=== PATIENT | male | born 1955 | race Caucasian/White ===

== ENCOUNTER 2016-12-14 10:27 | Observation (INO) ==
[2016-12-14] MEDS ORDERED: Aspirin 81 MG TAB.CHEW PO ONE (10:31)
--- NOTE | 2016-12-14 10:33 | Emergency Department Note ---
Disposition Clinical Impression: Chest pain Disposition: Admitted As Inpatient Condition: Fair General Adult HPI - General Chief complaint: ED Chest Pain Stated complaint: Chest Pain Time Seen by Provider: 12/14/16 10:31 - Related Data Home Medications Medication Instructions Recorded Confirmed Cholecalciferol (D-3) [Vitamin D] 2,000 unit PO DAILY 08/17/16 12/14/16 Cyanocobalamin (Vitamin B-12) 2,500 mcg PO DAILY 08/17/16 12/14/16 [Vitamin B12] Dabigatran [Pradaxa] 150 mg PO BID 08/17/16 12/14/16 Insulin Glargine,Hum.rec.anlog 52 units SQ QAM 08/17/16 12/14/16 [Lantus Solostar] Levothyroxine [Levothyroxine 137 mcg PO QAM 08/17/16 12/14/16 Sodium] Mv-Mn/FA/Vit K/Lycop/Lut/Coq10 1 cap PO DAILY 08/17/16 12/14/16 [Daily Multivitamin Capsule] Omeprazole 20 mg PO DAILY 08/17/16 12/14/16 Vit C/E/Zn/Coppr/Lutein/Zeaxan 2 cap PO BID 08/17/16 12/14/16 [Preservision Areds 2 Softgel] Insulin ASPART [Novolog Flexpen] 10 unit SQ QPM 12/14/16 12/14/16 MethylPREDNISolone [Medrol] 4 mg PO PER PKG DI 12/14/16 12/14/16 Previous Rx's Medication Instructions Recorded HydrOXYzine Pamoate [Hydroxyzine 25 mg PO TID PRN #30 capsule 12/13/16 Pamoate] Allergies Allergy/AdvReac Type Severity Reaction Status Date / Time azithromycin AdvReac Headache Verified 12/14/16 10:37 [From Zithromax Z-Jp] moxifloxacin [From Avelox] AdvReac Gastrointestinal Verified 12/14/16 10:37 Upset Mjzuppf-Isr-Xvr Reductase AdvReac Muscle Pain Verified 12/14/16 10:37 Inhibitor [Statins] Past Medical History - Past Medical History Medical history: Reports: arthritis, diabetes Surgical history: Reports: pacemaker/AICD, thyroidectomy Psychiatric history: Reports: no psych history - Social History Smoking Status: Never smoker Smokeless Tobacco Status: No Alcohol use: Reports: none Drug use: Reports: none Course Vital Signs Temperature 98.7 F 12/14/16 10:31 Pulse Rate 73 12/14/16 10:31 Respiratory Rate 18 12/14/16 10:31 Blood Pressure 153/90 12/14/16 10:31 O2 Sat by Pulse Oximetry 97 12/14/16 10:31 Temperature 98.3 F 12/15/16 06:46 Pulse Rate 84 12/15/16 06:46 Respiratory Rate 16 12/15/16 06:46 Blood Pressure 111/66 12/15/16 06:46 O2 Sat by Pulse Oximetry 94 12/15/16 06:46 Oxygen Delivery Oxygen Delivery Room Air Medical Decision Making - Lab Data Result diagrams: 12/15/16 03:11 12/15/16 03:11 Lab Results 12/14/16 12/14/16 12/14/16 Range/Units 10:39 10:39 10:39 WBC 7.9 (4.3-11.1) K/mcL RBC 4.98 (4.19-5.50) M/mcL Hgb 13.4 (12.9-16.9) g/dL Hct 42.3 (37.5-50.1) % MCV 84.9 (83.0-100.0) fL MCH 26.9 L (28.0-33.3) pg MCHC 31.7 (31.6-35.5) g/dL RDW 13.3 (11.5-14.5) % Plt Count 201 (140-400) K/mcL MPV 11.3 (9.4-12.4) fL Immature Gran % 0.3 (0-4) % Seg Neutrophils % 70.8 % Lymphocytes % 20.7 % Monocytes % 6.8 % Eosinophils % 1.1 % Basophils % 0.3 % Neutrophils # 5.6 (1.6-8.9) K/mcL Lymphocytes # 1.6 (0.6-4.6) K/mcL Monocytes # 0.5 (0.0-1.3) K/mcL Eosinophils # 0.1 (0.0-0.6) K/mcL Basophils # 0.0 (0.0-0.2) K/mcL Immature Plt Fraction 5.9 (1.1-6.1) % PT 12.8 H (9.4-12.1) Seconds INR 1.2 APTT 49.5 H (26.0-36.0) Seconds Sodium 139 (136-145) mEq/L Potassium 4.3 (3.5-4.5) mEq/L Chloride 102 (98-109) mEq/L Carbon Dioxide 29 (19-29) mEq/L BUN 15 (8-26) mg/dL Creatinine 1.20 (0.72-1.25) mg/dL Est GFR ( Amer) > 60 (> 60) Est GFR (Non-Af Amer) > 60 (> 60) BUN/Creatinine Ratio 13 (6-26) Glucose 218 H (70-99) mg/dL Calculated Osmolality 295 (280-300) Calcium 9.6 (8.6-10.8) mg/dL Troponin I (0-0.03) ng/mL 12/14/16 Range/Units 10:39 WBC (4.3-11.1) K/mcL RBC (4.19-5.50) M/mcL Hgb (12.9-16.9) g/dL Hct (37.5-50.1) % MCV (83.0-100.0) fL MCH (28.0-33.3) pg MCHC (31.6-35.5) g/dL RDW (11.5-14.5) % Plt Count (140-400) K/mcL MPV (9.4-12.4) fL Immature Gran % (0-4) % Seg Neutrophils % % Lymphocytes % % Monocytes % % Eosinophils % % Basophils % % Neutrophils # (1.6-8.9) K/mcL Lymphocytes # (0.6-4.6) K/mcL Monocytes # (0.0-1.3) K/mcL Eosinophils # (0.0-0.6) K/mcL Basophils # (0.0-0.2) K/mcL Immature Plt Fraction (1.1-6.1) % PT (9.4-12.1) Seconds INR APTT (26.0-36.0) Seconds Sodium (136-145) mEq/L Potassium (3.5-4.5) mEq/L Chloride (98-109) mEq/L Carbon Dioxide (19-29) mEq/L BUN (8-26) mg/dL Creatinine (0.72-1.25) mg/dL Est GFR ( Amer) (> 60) Est GFR (Non-Af Amer) (> 60) BUN/Creatinine Ratio (6-26) Glucose (70-99) mg/dL Calculated Osmolality (280-300) Calcium (8.6-10.8) mg/dL Troponin I 0.01 (0-0.03) ng/mL Attestation Statement - Attestation Attestation: I examined this patient and my medical decision-making was reviewed with the COMMUNITY ENGAGEMENT LEADER/PA/Advanced Practice Nurse/Resident Physician. I agree with the documented findings, disposition and treatment plan as described except to the extent set forth below. [id number]-xzhm time provided Patient presents complaining of substernal chest discomfort that started several hours ago. He has a pacemaker but denies having a history of CABG or coronary stents. He has a prescription for nitroglycerin but did not take any. He does not appear in any acute distress on exam.
[2016-12-14 10:49] LABS: Basophils % 0.3 %; Eosinophils # 0.1 K/mcL (0.0-0.6); Eosinophils % 1.1 %; Hematocrit 42.3 % (37.5-50.1); Hemoglobin 13.4 g/dL (12.9-16.9); Immature Granulocytes % 0.3 % (0-4); Immature Platelets 5.9 % (1.1-6.1); Lymphocytes # 1.6 K/mcL (0.6-4.6); Lymphocytes % 20.7 %; Mean Corpuscular HGB Conc 31.7 g/dL (31.6-35.5); Mean Corpuscular Hemoglobin 26.9 pg (28.0-33.3); Mean Corpuscular Volume 84.9 fL (83.0-100.0); Mean Platelet Volume 11.3 fL (9.4-12.4); Monocytes # 0.5 K/mcL (0.0-1.3); Monocytes % 6.8 %; Neutrophils # 5.6 K/mcL (1.6-8.9); Platelet Count 201 K/mcL (140-400); Red Blood Count 4.98 M/mcL (4.19-5.50); Red Cell Distribution Width 13.3 % (11.5-14.5); Segmented Neutrophils % 70.8 %
[2016-12-14] MEDS: Nitroglycerin 0.4 MG TAB.SUBL SL ONE ×2 (10:49→10:58)
[2016-12-14 10:53] LABS: INR 1.2; Prothrombin Time 12.8 Seconds (9.4-12.1)
[2016-12-14 10:56] LABS: Activated Partial Thrombo Time 49.5 Seconds (26.0-36.0)
--- NOTE | 2016-12-14 10:56 | Emergency Department Note ---
Disposition Clinical Impression: Chest pain Qualifiers: Chest pain type: unspecified Qualified Code(s): R07.9 - Chest pain, unspecified Disposition: Admitted As Inpatient Condition: Fair Referrals: NO,PCP [Primary Care Provider] - Forms: ED Satisfaction Letter Time of Disposition: 11:59 Chest Pain HPI - General Chief Complaint: ED Chest Pain Stated Complaint: Chest Pain Time Seen by Provider: 12/14/16 10:31 Source: patient Limitations: no limitations Vital Signs Reviewed: Yes Nursing Notes Reviewed: Yes - History of Present Illness HPI Narrative: 61-year-old male with history of hypertension, diabetes, pacemaker defibrillator , on grid Accent, patient states that he has been having substernal chest pain at rest, started at 6:30 AM this morning. Patient did not take any aspirin or nitroglycerin. States his pain goes into his left neck and left arm. He feels short of breath with light activity. Patient has not had pain like this before. Previous left heart catheter's revealed no coronary artery disease. Pt complaint: chest pain Onset (ago): hour(s) Time: 06:30 Onset: during rest Pain Location: substernal, left chest Severity: mild, moderate Severity scale (1-10): 7 Quality: aching, heaviness Pain Radiation: LUE, neck Improves with: nothing Worsens with: nothing Associated symptoms: Reports: nausea, dyspnea. Denies: vomiting, diaphoresis, sense of impending doom, syncope Treatments prior to arrival chest pain: none - Related Data Home Medications Medication Instructions Recorded Confirmed Cholecalciferol (D-3) [Vitamin D] 2,000 unit PO DAILY 08/17/16 12/14/16 Cyanocobalamin (Vitamin B-12) 2,500 mcg PO DAILY 08/17/16 12/14/16 [Vitamin B12] Dabigatran [Pradaxa] 150 mg PO BID 08/17/16 12/14/16 Insulin Glargine,Hum.rec.anlog 52 units SQ QAM 08/17/16 12/14/16 [Lantus Solostar] Levothyroxine [Levothyroxine 137 mcg PO QAM 08/17/16 12/14/16 Sodium] Mv-Mn/FA/Vit K/Lycop/Lut/Coq10 1 cap PO DAILY 08/17/16 12/14/16 [Daily Multivitamin Capsule] Omeprazole 20 mg PO DAILY 08/17/16 12/14/16 Vit C/E/Zn/Coppr/Lutein/Zeaxan 2 cap PO BID 08/17/16 12/14/16 [Preservision Areds 2 Softgel] Insulin ASPART [Novolog Flexpen] 10 unit SQ QPM 12/14/16 12/14/16 MethylPREDNISolone [Medrol] 4 mg PO PER PKG DI 12/14/16 12/14/16 Previous Rx's Medication Instructions Recorded HydrOXYzine Pamoate [Hydroxyzine 25 mg PO TID PRN #30 capsule 12/13/16 Pamoate] Allergies Allergy/AdvReac Type Severity Reaction Status Date / Time azithromycin AdvReac Headache Verified 12/14/16 10:37 [From Zithromax Z-Jp] moxifloxacin [From Avelox] AdvReac Gastrointestinal Verified 12/14/16 10:37 Upset Vynsdkn-Dvm-Kgf Reductase AdvReac Muscle Pain Verified 12/14/16 10:37 Inhibitor [Statins] All systems ED: reviewed and negative except as stated. Constitutional: Denies: fever Eyes: Denies: eye pain Cardiovascular: Reports: as per HPI, chest pain, dyspnea on exertion. Denies: palpitations Respiratory: Reports: as per HPI, dyspnea. Denies: wheezes Gastrointestinal: Reports: nausea. Denies: abdominal pain, vomiting Genitourinary: Denies: urgency, dysuria Musculoskeletal: Denies: back pain, neck pain Integumentary: Denies: rash Neurological: Denies: headache, weakness Chest Pain PMH - Past Medical History Medical history: Reports: arthritis, diabetes Surgical history: Reports: pacemaker/AICD, thyroidectomy Psychiatric history: Reports: no psych history - Social History Smoking Status: Never smoker Alcohol use: Reports: none Drug use: Reports: none Physical Exam Constitutional: appears uncomfortable, no diaphoresis elevated bp Neck: normal inspection, neck is supple, trachea midline Resp: normal chest inspection, CTA bilaterally, no resp distress CV: RRR, no m/g/r, pacemaker to left chest GI: normal inspection, Soft, NTND, BS present Back: normal inspection, no tenderness to palpation Neuro: A&O3, no gross motor or sensory deficits bilaterally Skin: No rashes, skin warm, dry, intact - General Limitations: no limitations General appearance: alert, in no apparent distress Course Course Narrative: 59-year-old insulin-dependent diabetic with chest pain at rest last 5 hours, no previous left heart catheterization the system, concern for ACS given his symptoms, his EKG shows a left bundle branch block but a ventricularly paced rhythm unchanged from previous EKG that was reviewed back in August, no ST segment or Sgarbossa's criteria we will trial of nitroglycerin, given 325 mg aspirin likely admission, Heart score of 4 - Reevaluation(s) Reevaluation #1: Admitted to medicine CP improved with Nitroglycerin to 3/10, added dilaudid if needed but currently declines pain meds, trop negative, paced rhythm pacer rep called no events or VF/VT admitted to medicine in stable condition. Vital Signs Temperature 98.7 F 12/14/16 10:31 Pulse Rate 73 12/14/16 10:31 Respiratory Rate 18 12/14/16 10:31 Blood Pressure 153/90 12/14/16 10:31 O2 Sat by Pulse Oximetry 97 12/14/16 10:31 Temperature 98.7 F 12/14/16 10:31 Pulse Rate 70 12/14/16 11:10 Respiratory Rate 18 12/14/16 10:38 Blood Pressure 126/76 12/14/16 11:10 O2 Sat by Pulse Oximetry 99 12/14/16 10:38 Oxygen Delivery Oxygen Delivery Room Air Chest Pain - MDM Narrative Medical decision making narrative: 61-year-old male with chest pain at rest, admitted to medicine for chest pain workup Dr Woodard in stable condition. - Differential Diagnosis Likely: atypical chest pain, chest pain - Medical Records Medical records reviewed: Yes I reviewed the patient's medical records. - Lab Data Result diagrams: 12/14/16 10:39 12/14/16 10:39 Lab Results 12/14/16 12/14/16 12/14/16 Range/Units 10:39 10:39 10:39 WBC 7.9 (4.3-11.1) K/mcL RBC 4.98 (4.19-5.50) M/mcL Hgb 13.4 (12.9-16.9) g/dL Hct 42.3 (37.5-50.1) % MCV 84.9 (83.0-100.0) fL MCH 26.9 L (28.0-33.3) pg MCHC 31.7 (31.6-35.5) g/dL RDW 13.3 (11.5-14.5) % Plt Count 201 (140-400) K/mcL MPV 11.3 (9.4-12.4) fL Immature Gran % 0.3 (0-4) % Seg Neutrophils % 70.8 % Lymphocytes % 20.7 % Monocytes % 6.8 % Eosinophils % 1.1 % Basophils % 0.3 % Neutrophils # 5.6 (1.6-8.9) K/mcL Lymphocytes # 1.6 (0.6-4.6) K/mcL Monocytes # 0.5 (0.0-1.3) K/mcL Eosinophils # 0.1 (0.0-0.6) K/mcL Basophils # 0.0 (0.0-0.2) K/mcL Immature Plt Fraction 5.9 (1.1-6.1) % PT 12.8 H (9.4-12.1) Seconds INR 1.2 APTT 49.5 H (26.0-36.0) Seconds Sodium 139 (136-145) mEq/L Potassium 4.3 (3.5-4.5) mEq/L Chloride 102 (98-109) mEq/L Carbon Dioxide 29 (19-29) mEq/L BUN 15 (8-26) mg/dL Creatinine 1.20 (0.72-1.25) mg/dL Est GFR ( Amer) > 60 (> 60) Est GFR (Non-Af Amer) > 60 (> 60) BUN/Creatinine Ratio 13 (6-26) Glucose 218 H (70-99) mg/dL Calculated Osmolality 295 (280-300) Calcium 9.6 (8.6-10.8) mg/dL Troponin I (0-0.03) ng/mL 12/14/16 Range/Units 10:39 WBC (4.3-11.1) K/mcL RBC (4.19-5.50) M/mcL Hgb (12.9-16.9) g/dL Hct (37.5-50.1) % MCV (83.0-100.0) fL MCH (28.0-33.3) pg MCHC (31.6-35.5) g/dL RDW (11.5-14.5) % Plt Count (140-400) K/mcL MPV (9.4-12.4) fL Immature Gran % (0-4) % Seg Neutrophils % % Lymphocytes % % Monocytes % % Eosinophils % % Basophils % % Neutrophils # (1.6-8.9) K/mcL Lymphocytes # (0.6-4.6) K/mcL Monocytes # (0.0-1.3) K/mcL Eosinophils # (0.0-0.6) K/mcL Basophils # (0.0-0.2) K/mcL Immature Plt Fraction (1.1-6.1) % PT (9.4-12.1) Seconds INR APTT (26.0-36.0) Seconds Sodium (136-145) mEq/L Potassium (3.5-4.5) mEq/L Chloride (98-109) mEq/L Carbon Dioxide (19-29) mEq/L BUN (8-26) mg/dL Creatinine (0.72-1.25) mg/dL Est GFR ( Amer) (> 60) Est GFR (Non-Af Amer) (> 60) BUN/Creatinine Ratio (6-26) Glucose (70-99) mg/dL Calculated Osmolality (280-300) Calcium (8.6-10.8) mg/dL Troponin I 0.01 (0-0.03) ng/mL - EKG Data EKG attestation: Yes I reviewed and interpreted this EKG. EKG shows normal: sinus rhythm Rate: normal [place]/QRS: LBBB (75 bpm QRS [address] segment elevations or depressions, left bundle branch block seen on previous EKG in August 2016) Interpretation: nonspecific ST-T wave changes - Core Measures AMI Core Measures Followed: Yes Heart Score - Score History: Moderately Suspicious EKG: Non Specific repolarisation Disturbance Age: 45-65 Risk Factors: Equal/Greater than 3 risk factor or history of atherosclerotic disease Troponin: Less than normal limit HEART Score Total: 5
[2016-12-14 11:00] LABS: BUN/Creatinine Ratio 13 (6-26); Blood Urea Nitrogen 15 mg/dL (8-26); Calcium 9.6 mg/dL (8.6-10.8); Carbon Dioxide 29 mEq/L (19-29); Chloride 102 mEq/L (98-109); Glucose 218 mg/dL (70-99); Osmolality,Calculated 295 (280-300); Potassium 4.3 mEq/L (3.5-4.5); Sodium 139 mEq/L (136-145); eGFR For African Americans > 60 (> 60); eGFR For Non-African Americans > 60 (> 60)
[2016-12-14] MEDS ORDERED: Ondansetron 4 MG/2 ML VIAL IVP ONE (11:11)
[2016-12-14] MEDS ORDERED: *HR* HYDROmorphone (PF) 1 MG/ML SYRINGE IVP ONE (11:11)
[2016-12-14] MEDS ORDERED: *HR* Morphine 2 MG/ML SYRINGE IVP PRN (12:41)
[2016-12-14] MEDS ORDERED: Acetaminophen 325 MG TABLET PO PRN (12:41)
[2016-12-14] MEDS ORDERED: Naloxone 0.4 MG/ML INJ IVP PRN (12:41)
[2016-12-14] MEDS ORDERED: Ondansetron 4 MG/2 ML VIAL IVP PRN (12:41)
[2016-12-14] MEDS ORDERED: Ibuprofen 400 MG TABLET PO PRN (12:41)
[2016-12-14] MEDS ORDERED: methylPREDNISolone 4 MG TABLET PO SCH ×3 (12:45→19:00)
[2016-12-14] MEDS ORDERED: D5% in Water 1,000 ML IVC PRN (12:46)
[2016-12-14] MEDS ORDERED: Dextrose Gel 15 GM PO PRN ×2 (12:46)
[2016-12-14] MEDS ORDERED: *HR* Dextrose 50 % in Water (Syg) 50 ML SYRINGE IVP PRN (12:46)
--- NOTE | 2016-12-14 13:04 | Internal Med History&Physical ---
Date of Encounter: 12/14/16 Time of Encounter: 12:58 Assessment and Plan (1) Chest pain Current visit: Yes Status: Acute Cycle trops Obtain ECHO Cardiology consult if any abnormalities in work uo EKG is unremarkable Patient was started on Coreg in 08/2016, again I do not see this on his med list , and patient does not know why it was stopped Will restart low dose coreg and ASA for now Patient is on Pradaxa as well for Afib, may discontinue ASA if CAD work up is negative Has allergy to Statins Device interrogation is normal Qualifiers: Chest pain type: unspecified Qualified Code(s): R07.9 - Chest pain, unspecified (2) Atrial fibrillation Current visit: Yes Status: Chronic rate is controlled Resume home meds Qualifiers: Atrial fibrillation type: permanent Qualified Code(s): I48.2 - Chronic atrial fibrillation (3) Ventricular tachycardia Current visit: Yes Status: Chronic On ICD Stable (4) Diabetes Current visit: Yes Status: Chronic Uncontrolled A1c 8.9 12/10/16 Start on basal , prandial and correctional insulin FS ACHS ADA diet Qualifiers: Diabetes mellitus type: type 2 Diabetes mellitus complication status: without complication Diabetes mellitus resident assistant cna insulin use: without retirement use Qualified Code(s): E11.9 - Type 2 diabetes mellitus without complications (5) ESAU (obstructive sleep apnea) Current visit: Yes Status: Chronic BiPAP at night (6) Urticaria Current visit: Yes Status: Acute Patient stated skin rash for which he went to ED, I did not see any rash today but he does look slighlty flushed Will continue medrol with taper Internal Medicine - H&P: HPI Chief complaint: Chest pain Admitted From: Home Plans for Post Hospital Care: Home History of present illness: Mr. Pike is a 61 year old male with PMH of DM, HTN, VTach s/p AICD, Afib on Pradaxa, HLD, Obesity He is evaluated at bedside with his spouse He reports being in his [facility] state of health till 6a.m this morning when he developed a 5/10 substernal pressure like pain on his chest. He reports pain started mildy and progressively increased to 5, and radiated to his right neck and jaw. he proceeded to present to ER. He denies associated difficulty breathing, nausea, vomiting , or diaphoresis. He denies dizziness or palpitations, his AICD did not fire any impulses he denies leg swelling, orthopnea or dyspnea Other ROS in unremarkable he was at urgent care yesterday for urticaria and was started on medrol He received NTG which decreased his chest pain from 5 to 1. EKG revealed paced rhythm, CBC, Chem unremarkable, CXR is no acute findings, Initial troponin is 0.01, TSH 5.89, A1C 8.55, ECHO from 08/2016 unremarkable. He had a cath in 2013 that did not show any obstruction. His ICD was interrogated in the ED and there were no abnormal findings Due to his multiple risk factors, he will be placed on observation for Chest pain, to cycle his troponin and will repeat an ECHO to assess wall motion abnormalities Past Med Surg Social Fam HX - Past Medical History Medical history: arthritis, diabetes Psychiatric history: no psych history - Past Surgical History Surgical History: pacemaker/AICD, thyroidectomy - Social History Smoking Status: Never smoker Smokeless Tobacco Status: No Alcohol use: none Drug use: none Internal Medicine - H&P: Meds Cholecalciferol (D-3) [Vitamin D] 2,000 unit PO DAILY 08/17/16 [History] Cyanocobalamin (Vitamin B-12) [Vitamin B12] 2,500 mcg PO DAILY 08/17/16 [History ] Dabigatran [Pradaxa] 150 mg PO BID 08/17/16 [History] Insulin Glargine,Hum.rec.anlog [Lantus Solostar] 52 units SQ QAM 08/17/16 [ History] Levothyroxine [Levothyroxine Sodium] 137 mcg PO QAM 08/17/16 [History] Mv-Mn/FA/Vit K/Lycop/Lut/Coq10 [Daily Multivitamin Capsule] 1 cap PO DAILY 08/17 [History] Omeprazole 20 mg PO DAILY 08/17/16 [History] Vit C/E/Zn/Coppr/Lutein/Zeaxan [Preservision Areds 2 Softgel] 2 cap PO BID 08/17 [History] HydrOXYzine Pamoate [Hydroxyzine Pamoate] 25 mg PO TID PRN #30 capsule 12/13/16 [Rx] Insulin ASPART [Novolog Flexpen] 10 unit SQ QPM 12/14/16 [History] MethylPREDNISolone [Medrol] 4 mg PO PER PKG DI 12/14/16 [History] Allergies azithromycin [From Zithromax Z-Jp] Adverse Reaction (Verified 12/14/16 10:37) Headache moxifloxacin [From Avelox] Adverse Reaction (Verified 12/14/16 10:37) Gastrointestinal Upset Tlqrevg-Opi-Bpb Reductase Inhibitor [Statins] Adverse Reaction (Verified 10:37) Muscle Pain All Systems PM: A 10-system review of systems was performed and is negative for pertinent findings except as documented above in the HPI. - Constitutional Constitutional: no chills, no fever(s), no night sweats - EENT Eyes: no change in vision, no discharge, no pain, no photophobia Ears: no ear discharge, no ear pain, no tinnitus Nose, mouth and throat: no dysphagia, no nasal discharge, no neck pain, no sore throat - Cardiovascular Cardiovascular ROS IM: as per HPI - Respiratory Respiratory: as per HPI - Gastrointestinal Gastrointestinal: no abdominal pain, no diarrhea, no hematemesis, no hematochezia, no melena, no nausea, no vomiting - Musculoskeletal Musculoskeletal ROS IM: no numbness, no tingling - Integumentary Integumentary IM: no rash, no unusual bruising - Neurological Neurological ROS: no confusion, no convulsions, no focal weakness, no numbness, no tingling, no tremor(s) - Hematologic/Lymphatic Hematologic/Lymphatic: no easy bruising - Constitutional Vitals: Temp Pulse Resp BP Pulse Ox 98.7 F 72 14 128/80 97 12/14/16 10:31 12/14/16 12:23 12/14/16 12:23 12/14/16 12:23 12/14/16 12:23 VSS Not in any form of distress, speaks full sentences AAOX3, moves all limbs simultaneously Moist oral mucosa, no cyanosis, sclera is not icteric, conjunctiva is not pale Chest is CTAB, no chest wall tenderness Heart is S1, S2 only, no m/g/r Abdomen: Obese, not tender, no palpably enlarged organs, bowel sounds present in all quadrants Extremities: Well perfused, no edema Internal Med - H&P Results - Labs CBC & Chem 7: 12/14/16 10:39 12/14/16 10:39 Labs: Short CBC 12/14/16 Range/Units 10:39 WBC 7.9 (4.3-11.1) K/mcL Hgb 13.4 (12.9-16.9) g/dL Hct 42.3 (37.5-50.1) % Plt Count 201 (140-400) K/mcL Neutrophils # 5.6 (1.6-8.9) K/mcL BMP 12/14/16 10:39 Sodium 139 Potassium 4.3 Chloride 102 Carbon Dioxide 29 BUN 15 Creatinine 1.20 Glucose 218 H Calcium 9.6 Cardiac Enzymes 12/14/16 Range/Units 10:39 Troponin I 0.01 (0-0.03) ng/mL - Impressions ITS Impressions Chest X-Ray 12/14/16 10:31 IMPRESSION: Pacemaker. No acute pulmonary process. D/ / 12/14/2016 11:11:25 Rosina Bello MD / ryland Interpreting Provider: Rosina Bello MD
[2016-12-14] MEDS: Insulin LISPRO 300 UNITS/3 ML VIAL SQ SCH ×2 (17:19)
[2016-12-14] MEDS ORDERED: Insulin DETEMIR 100 UNIT/ML X5UNITS SQ SCH (21:00)
[2016-12-14] MEDS ORDERED: Insulin LISPRO 300 UNITS/3 ML VIAL SQ SCH (21:00)
[2016-12-14] MEDS: *HR* Dabigatran 150 MG CAPSULE PO SCH (21:35)
[2016-12-15 03:28] LABS: Basophils % 0.1 %; Hematocrit 39.8 % (37.5-50.1); Immature Granulocytes % 0.3 % (0-4); Lymphocytes # 0.8 K/mcL (0.6-4.6); Lymphocytes % 8.8 %; Mean Corpuscular HGB Conc 32.7 g/dL (31.6-35.5); Mean Corpuscular Hemoglobin 27.7 pg (28.0-33.3); Mean Corpuscular Volume 84.7 fL (83.0-100.0); Mean Platelet Volume 11.7 fL (9.4-12.4); Monocytes # 0.1 K/mcL (0.0-1.3); Neutrophils # 8.1 K/mcL (1.6-8.9); Platelet Count 197 K/mcL (140-400); Red Cell Distribution Width 13.2 % (11.5-14.5); Segmented Neutrophils % 89.8 %
[2016-12-15 03:43] LABS: BUN/Creatinine Ratio 16 (6-26); Blood Urea Nitrogen 18 mg/dL (8-26); Calcium 9.6 mg/dL (8.6-10.8); Carbon Dioxide 22 mEq/L (19-29); Chloride 103 mEq/L (98-109); Glucose 274 mg/dL (70-99); Osmolality,Calculated 294 (280-300); Potassium 4.6 mEq/L (3.5-4.5); Sodium 136 mEq/L (136-145); eGFR For African Americans > 60 (> 60); eGFR For Non-African Americans > 60 (> 60)
[2016-12-15] MEDS ORDERED: Cyanocobalamin (B-12) 1,000 MCG TABLET PO SCH (09:00)
[2016-12-15] MEDS ORDERED: Multivit/Ca/Min/Fe/FA 1 TAB TABLET PO SCH (09:00)
[2016-12-15] MEDS ORDERED: methylPREDNISolone 4 MG TABLET PO SCH (09:00)
[2016-12-15] MEDS ORDERED: Cholecalciferol (D-3) 1,000 UNIT TABLET PO SCH (09:00)
[2016-12-15] MEDS ORDERED: Aspirin Enteric Coated 81 MG Tablet PO SCH (09:00)
[2016-12-15] MEDS: Insulin LISPRO 300 UNITS/3 ML VIAL SQ SCH ×4 (09:03→12:42)
[2016-12-15] MEDS: *HR* Dabigatran 150 MG CAPSULE PO SCH (12:40)
--- NOTE | 2016-12-15 14:56 | ECHO - Doppler Report ---
Echocardiogram Name: Gabino Pike Date of Study: 12/15/2016 Date: 1955 Ht: 72.0 in Medical Record#: [id number] Age: 61 Wt: 280.0 lb Gender: Male BSA: 2.46 Order #: [id number] Location: [facility] Room #: [id number] Reading Physician: Alessio Larson DO, FACC, SANDRA, NATHANAEL Drum Attendant: JESSY FullerT, [facility] Ordering Physician: Tyshawn Woodard MD Primary Physician: Matt Martinez MD Indications: Chest pain Impressions: LVEF 60%. Normal LV chamber size and function. Mild concentric left ventricular hypertrophy. Indeterminate diastolic function. Atypical septal motion consistent with paced rhythm. Right ventricular size is not well quantified, but demonstrates normal function. Moderately dilated left atrium. No evidence of pulmonary hypertension. A device lead was visualized in the right atrium and right ventricle. No significant valvular dysfunction. Left Ventricular Wall Motion: Rest Echo Findings All wall segments showed normal motion. Findings: Study Quality * Technically sub-optimal due to poor echocardiographic windows. ECG Findings * Paced rhythm. Left Ventricle * LVEF 60%. * Normal LV chamber size and function. * Mild concentric left ventricular hypertrophy. * Indeterminate diastolic function. * Atypical septal motion consistent with paced rhythm. Right Ventricle * Right ventricular size is not well quantified, but demonstrates normal function. Left Atrium * Moderately dilated left atrium. Right Atrium * Mildly dilated right atrium. Interatrial Septum * Interatrial septum not well evaluated. Aortic Valve * Aortic valve not well visualized. * No aortic stenosis. * No aortic regurgitation. Mitral Valve * Normal mitral valve structure and function. * No mitral regurgitation. * No mitral stenosis. Tricuspid Valve * Normal tricuspid valve structure and function. * Trace tricuspid regurgitation. * No evidence of pulmonary hypertension. Pulmonic Valve * Pulmonic valve not well visualized. Aorta * Normally sized aortic root. Pericardium * The pericardium appears normal. IVC * The IVC is not well evaluated. Pulmonary Artery * Pulmonary artery not well visualized. Device lead * A device lead was visualized in the right atrium and right ventricle. History Diabetes Pacer/ICD Implant 08-17-2016 a Previous Echo was performed. Measurements: BP: 112/ 72 2D Normal Values RVIDd: 3.20 cm <2.7 cm IVSd: 1.20 cm 0.6 - 1.0 cm LVIDd: 5.30 cm 3.7 - 5.6 cm LVPWd: 1.30 cm 0.6 - 1.1 cm LVIDs: 3.30 cm 1.5 - 3.6 cm AO: 3.20 cm < 4.0 cm LA: 4.80 cm 2.0 - 4.0cm %FS: 37.70 cm >25 % LA volume: 51 Mitral Valve Dec Time:254.00 msec Peak E:.88 m/sec Peak A:.35 m/sec E/A Ratio:2.5 Peak E' Lat Malick:12.1 cm/s Peak E' Med Malick:8.09 cm/s E/E' Lat Ratio:7.3 E/E' Med Ratio:10.9 Tricuspid Valve TV Regurg Peak Grad: 19.00mmHg TV Regurg Peak Malick: 2.16m/sec Updated by Alessio Larson DO, THELMA, NATHANAEL FLORES on 12/15/2016 2:50:34 PM electronically signed on 12/15/2016 2:51:51 PM with status of Final Wall Motion [place]: 1=Normal, 2=Hypokinesis, 3=Akinesis, 4=Dyskinesis, 5=Aneurysmal, 6=Hyperkinetic, X=Not Visualized (Blank)=Missing
--- NOTE | 2016-12-15 15:29 | Discharge Summary ---
Date of Encounter: 12/15/16 Time of Encounter: 15:27 - Discharge Diagnosis (1) Chest pain Priority: Primary Status: Acute Qualifiers: Chest pain type: unspecified Qualified Code(s): R07.9 - Chest pain, unspecified (2) Atrial fibrillation Priority: Secondary Status: Chronic Qualifiers: Atrial fibrillation type: permanent Qualified Code(s): I48.2 - Chronic atrial fibrillation (3) Ventricular tachycardia Priority: Secondary Status: Chronic (4) Diabetes Priority: Secondary Status: Chronic Qualifiers: Diabetes mellitus type: type 2 Diabetes mellitus complication status: without complication Diabetes mellitus prison insulin use: 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 Qualified Code(s): E11.9 - Type 2 diabetes mellitus without complications (5) ESAU (obstructive sleep apnea) Priority: Secondary Status: Chronic (6) Urticaria Priority: Secondary Status: Acute - Discharge Medications Home Medications: Cholecalciferol (D-3) [Vitamin D] 2,000 unit PO DAILY 08/17/16 [History] Cyanocobalamin (Vitamin B-12) [Vitamin B12] 2,500 mcg PO DAILY 08/17/16 [History ] Dabigatran [Pradaxa] 150 mg PO BID 08/17/16 [History] Insulin Glargine,Hum.rec.anlog [Lantus Solostar] 52 units SQ QAM 08/17/16 [ History] Levothyroxine [Levothyroxine Sodium] 137 mcg PO QAM 08/17/16 [History] Mv-Mn/FA/Vit K/Lycop/Lut/Coq10 [Daily Multivitamin Capsule] 1 cap PO DAILY 08/17 [History] Omeprazole 20 mg PO DAILY 08/17/16 [History] Vit C/E/Zn/Coppr/Lutein/Zeaxan [Preservision Areds 2 Softgel] 2 cap PO BID 08/17 [History] HydrOXYzine Pamoate [Hydroxyzine Pamoate] 25 mg PO TID PRN #30 capsule 12/13/16 [Rx] Insulin ASPART [Novolog Flexpen] 10 unit SQ QPM 12/14/16 [History] MethylPREDNISolone [Medrol] 4 mg PO PER PKG DI 12/14/16 [History] Allergies/Adverse Reactions: Allergies azithromycin [From Linio Z-Jp] Adverse Reaction (Verified 12/14/16 10:37) Headache moxifloxacin [From Avelox] Adverse Reaction (Verified 12/14/16 10:37) Gastrointestinal Upset Vgrwunr-Nco-Oky Reductase Inhibitor [Statins] Adverse Reaction (Verified 10:37) Muscle Pain Procedures/tests Complete & Pending: Procedures Performed prior 72 hours Category Date Time Status EV echocardiogram Routine Y 12/15/16 Completed Date of admission: 12/14/16 13:21 Primary care physician: Matt Martinez MD Discharging clinician: Tyshawn Woodard Anticipated date of discharge: 12/15/16 - Patient Status Disposition: Home, Self-Care Condition: Good Functional capacity at discharge: independent ambulation Overall status at discharge: patient is progressing back to baseline - Discharge Instructions Follow Up With: Matt Martinez MD [Primary Care Provider] - - Diet and Activity Activity: resume usual activities as tolerated Diet: low fat, low cholesterol, low salt diet Interval History: Mr. Pike is a 61 year old male with PMH of DM, HTN, VTach s/p AICD, Afib on Pradaxa, HLD, Obesity He is evaluated at bedside with his spouse [facility] morning when he developed a 5/10 substernal pressure like pain on his chest. He reports pain started mildy and progressively increased to 5, and radiated to his right neck and jaw. he proceeded to present to ER. He denies associated difficulty breathing, nausea, vomiting , or diaphoresis. He denies dizziness or palpitations, his AICD did not fire any impulses he denies leg swelling, orthopnea or dyspnea Other ROS in unremarkable he was at urgent care yesterday a day prior urticaria and was started on medrol , which he did not take. He did not have any rash at my time of review He received NTG which decreased his chest pain from 5 to 1. EKG revealed paced rhythm, CBC, Chem unremarkable, CXR is no acute findings, Initial troponin is 0.01, TSH 5.89, A1C 8.55, ECHO from 08/2016 unremarkable. He had a cath in 2013 that did not show any obstruction. 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 Pike is a 61 year old male - Time Spent with Patient Total time spent providing and/or coordinating discharge services: Less than 30 minutes - Constitutional Vitals: Temp Pulse Resp BP Pulse Ox 97.7 F 74 16 131/79 94 12/15/16 15:12 12/15/16 15:12 12/15/16 15:12 12/15/16 15:12 12/15/16 15:12 General appearance: Present: A&O X 3, pleasant, no acute distress, obese, answers questions appropriately - Head Head exam: Present: atraumatic, normocephalic - Eye Eye exam: Present: PERRL, conjuntiva pink, sclera anicteric Pupils: Present: PERRL - Neck Neck exam general surgery: Present: supple, trachea midline. Absent: lymphadenopathy - Respiratory Respiratory exam: Present: CTAB. Absent: accessory muscle use, rales, rhonchi, wheezes Additional comments: PCM site clean and dry - Cardiovascular Cardiovascular exam: Present: RRR, +S1, +S2. Absent: diastolic murmur, gallop, rubs, systolic murmur - GI/Abdominal GI/Abdominal exam: Present: normal bowel sounds, soft, no peritoneal signs. Absent: distended, tenderness - Extremities Exam Extremities exam: Present: warm, radial pulses palpable and symetrical. Absent : calf tenderness, cyanotic, pedal edema - Neurological Exam Neurological exam: Present: CN II-XII intact, oriented X3, no focal deficits. Absent: pronater drift, facial droop, speech deficit - Skin Skin exam: Present: dry, intact
--- NOTE | 2016-12-15 17:36 | Electrocardiograph Report ---
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
--- NOTE | 2016-12-15 17:44 | Electrocardiograph Report ---
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
[2016-12-16 11:20] VITALS: BP 131/79
== END 2016-12-15 16:31 | disposition home or self-care (01) ==
LOC: EMEROO 10:27 → 3BNU 10:27 → SUATTDRO 13:21 → 3BNU 15:02
PROVIDERS: ADMIT Internal Medicine; ATTEND Internal Medicine

== ENCOUNTER 2017-02-10 09:10 | Observation (INO) ==
--- NOTE | 2017-02-10 09:30 | Anesthesia Evaluation PreOp ---
Date of Encounter: 02/10/17 Time of Encounter: 09:30 - Past History Planned Operation: Robotic Incisional hernia repair Cardiac History: HTN, Hyperlipidemia, Arrhythmia (Paroxysmal Afib), Pacemaker/ ICD (11/18 AICD - interogated 10/29/2016) Pulmonary History: ESAU Dx (Cpap, O2 2L q hs) TIP STITCHER History: Denies Any Significant HX Other Medical History: Diabetes Type II, Thyroid (Hypothyroid), GERD Anesthesia History: Past Anesthesia (GB, Gastric bypass, duodenal ulcer, AICD, Appy,), Problems (Hard to wake up) Alcohol Use: none Drug use: none Medications and Allergies Cholecalciferol (D-3) [Vitamin D] 2,000 unit PO DAILY 08/17/16 [History] Cyanocobalamin (Vitamin B-12) [Vitamin B12] 2,500 mcg PO DAILY 08/17/16 [History ] Dabigatran [Pradaxa] 150 mg PO BID 08/17/16 [History] Insulin Glargine,Hum.rec.anlog [Lantus Solostar] 52 units SQ QAM 08/17/16 [ History] Levothyroxine [Levothyroxine Sodium] 137 mcg PO QAM 08/17/16 [History] Mv-Mn/FA/Vit K/Lycop/Lut/Coq10 [Daily Multivitamin Capsule] 1 cap PO DAILY 08/17 [History] Omeprazole 20 mg PO DAILY 08/17/16 [History] Vit C/E/Zn/Coppr/Lutein/Zeaxan [Preservision Areds 2 Softgel] 2 cap PO BID 08/17 [History] hydrOXYzine pamoate [Hydroxyzine Pamoate] 25 mg PO TID PRN #30 capsule 12/13/16 [Rx] Insulin ASPART [Novolog Flexpen] 10 unit SQ QPM 12/14/16 [History] methylPREDNISolone [Medrol] 4 mg PO PER PKG DI 12/14/16 [History] Allergies azithromycin [From Zithromax Z-Jp] Adverse Reaction (Verified 12/14/16 10:37) Headache moxifloxacin [From Avelox] Adverse Reaction (Verified 12/14/16 10:37) Gastrointestinal Upset Vjhtqck-Exe-Ftr Reductase Inhibitor [Statins] Adverse Reaction (Verified 10:37) Muscle Pain - Meds/Allergy Pre-op Review Medications Reviewed: Yes Allergies Reviewed: Yes Beta Blockers on Current Med List: No Anesthesia Results - Labs Laboratory Tests 01/26/17 01/26/17 01/26/17 13:45 13:45 13:45 WBC 5.7 Hgb 13.1 Hct 41.4 Plt Count 203 INR 1.3 Sodium 137 Potassium 4.5 Chloride 101 Carbon Dioxide 28 BUN 13 Creatinine 1.21 Echo 08/17/16 EF- 55% Pacred rhythm - Imaging EKG: image reviewed (Ventricular paced) Anesthesia Exam O2 Sat Height 1.83 m Height 1.83 m Weight 127.459 kg Weight 127.459 kg O2 Sat by Pulse Oximetry 98 Vital Signs Temp Pulse Resp BP Pulse Ox 98.1 F 87 18 153/94 98 02/10/17 09:30 02/10/17 09:30 02/10/17 09:30 02/10/17 09:30 02/10/17 09:30 Height: 6' Weight: 281# NPO (# of Hours): > 8 hrs Pain Scale: 0 Pain Scale Used: Numeric (1 - 10) - HEENT Pupil (Motor): Pupils equal, EOMI Mallampati: II Teeth: Missing Denture Type: Upper: Complete, Lower: Partial Oral Opening: Greater than 3 - TIP STITCHER LOC: Oriented TIP STITCHER Motor: Normal RUE, Normal LUE, Normal RLE, Normal LLE, Normal Face TIP STITCHER Sensory: Normal: RUE, LUE, RLE, LLE, Face - Cardiac Rhythm: Regular Murmur: None Carotid Bruit: No - Pulmonary Breath Sounds: bilateral Clear Respiratory Effort: Symmetrical Anesthesia Assess/Plan ASA Score: 3 Modified [place] Scale for Level of Consciousness: Cooperative, oriented, and tranquil Anesthetic Plan: General Autologous Blood: Yes Monitoring Plan: Standard Monitors Recovery Plan: PACU
[2017-02-10] MEDS ORDERED: Lidocaine -MPF 1% 2 ML VIAL ID ONE (09:45)
[2017-02-10] MEDS ORDERED: Ringers Solution, Lactated 1,000 ML IVC SCH ×2 (09:45→11:30)
[2017-02-10] MEDS ORDERED: CeFAZolin Pre 3,000 MG/100 ML 3,000 MG/100 ML BAG IVPB ONE (09:45)
[2017-02-10] MEDS ORDERED: *HR* FentaNYL (PF) 100 MCG/2 ML VIAL ONE (09:52)
[2017-02-10] MEDS ORDERED: *HR* Rocuronium Bromide 50 MG/5 ML VIAL ONE (09:52)
[2017-02-10] MEDS ORDERED: Lidocaine -MPF 4% 5 ML AMPUL ONE (09:52)
[2017-02-10] MEDS ORDERED: *HR* Propofol 200 MG/20 ML VIAL IVP ONE (09:52)
[2017-02-10] MEDS ORDERED: Ondansetron 4 MG/2 ML VIAL ONE (09:52)
[2017-02-10] MEDS ORDERED: Dexamethasone 4 MG/ML VIAL ONE (09:52)
[2017-02-10] MEDS ORDERED: Lidocaine -MPF 2% 2 ML VIAL ONE (09:52)
--- NOTE | 2017-02-10 10:23 | History & Physical Report ---
Date of Encounter: 02/10/17 Time of Encounter: 10:22 24 Hour HP Update - Instructions Instructions: If the History and Physical is less than 30 days old and was completed prior to A.M. admission and or procedure and has NOT been updated on calendar day of procedure please complete this update prior to performing procedure. - Update Patient reports changes in Medical Condition: No Changes in examination, assessment, or condition: No Changes in Medication: No Preop tests/diagnostics Reviewed: Yes Pre-Op MRSA Screen: Negative Surgery Remains Indicated: Yes Consent for Planned Operative Procedure(s) Verified: Yes - Pre-Operative Checklist Preoperative Checklist Indicated: No Prophylactic Antibiotic Ordered: Yes Home Medications Include Beta Warner: No Beta Warner Taken Today (Day of Surgery): No Beta Warner Taken Yesterday (Day Prior to Surgery): No Is VTE Prophylaxis Indicated?: NO
--- NOTE | 2017-02-10 10:24 | Discharge Summary ---
Outpatient Proc Discharge Plan - Plan Additional Instructions: No heavy lifting greater than 15lbs for 6 weeks. May shower in two days. Prescriptions: OxyCODONE/APAP 10/325 [Percocet 10/325 MG] 1 each PO Q6HR PRN #39 tablet PRN Reason: Pain Home Medications: Cholecalciferol (D-3) [Vitamin D] 2,000 unit PO DAILY 08/17/16 [History] Cyanocobalamin (Vitamin B-12) [Vitamin B12] 2,500 mcg PO DAILY 08/17/16 [History ] Dabigatran [Pradaxa] 150 mg PO BID 08/17/16 [History] Insulin Glargine,Hum.rec.anlog [Lantus Solostar] 52 units SQ QAM 08/17/16 [ History] Levothyroxine [Levothyroxine Sodium] 137 mcg PO QAM 08/17/16 [History] Mv-Mn/FA/Vit K/Lycop/Lut/Coq10 [Daily Multivitamin Capsule] 1 cap PO DAILY 08/17 [History] Omeprazole 20 mg PO DAILY 08/17/16 [History] Vit C/E/Zn/Coppr/Lutein/Zeaxan [Preservision Areds 2 Softgel] 2 cap PO BID 08/17 [History] hydrOXYzine pamoate [Hydroxyzine Pamoate] 25 mg PO TID PRN #30 capsule 12/13/16 [Rx] Insulin ASPART [Novolog Flexpen] 10 unit SQ QPM 12/14/16 [History] methylPREDNISolone [Medrol] 4 mg PO PER PKG DI 12/14/16 [History] OxyCODONE/APAP 10/325 [Percocet 10/325 MG] 1 each PO Q6HR PRN #39 tablet [Rx]
[2017-02-10] MEDS ORDERED: *HR* HYDROmorphone (PF) 1 MG/ML SYRINGE IVP PRN (11:28)
[2017-02-10] MEDS ORDERED: *HR* Labetalol 100 MG/20 ML MDV IVP PRN (11:28)
[2017-02-10] MEDS ORDERED: *HR* Promethazine 25 MG/ML VIAL IVP PRN (11:28)
[2017-02-10] MEDS ORDERED: Ondansetron 4 MG/2 ML VIAL IVP ONE (11:28)
[2017-02-10] MEDS ORDERED: Neostigmine Methylsulfate 3 MG/3 ML SYRINGE ONE (11:50)
[2017-02-10] MEDS ORDERED: Ketorolac 30 MG/ML VIAL ONE (12:24)
[2017-02-10] MEDS ORDERED: *HR* OxyCODONE/APAP 10/325 TABLET PO ONE (12:34)
--- NOTE | 2017-02-10 12:34 | Operative Note ---
Date of procedure: 02/10/17 Pre-op diagnosis: Incisional hernia x2 Post-op diagnosis: other Procedure: Robot assisted repair of incisional hernia x 2 Implants: 9cm circular mesh, 12cm circular mesh Anesthesia: ALONSO Surgeon: Varun Guzman Substation Electrician: Lila Mcnulty Condition: stable Disposition: PACU Procedure in Detail: Date of surgery: 02/10/17 After properly identifying the patient, the patient was brought to the operating room and placed in the supine position. After proper IV sedation was achieved followed by general endotracheal intubation, the patient's abdomen was prepped and draped in normal sterile fashion. After timeout was performed noting the patient's name and type of procedure to be performed the patient's abdomen was prepped and draped in a normal sterile fashion. A timeout was performed noting the patient's name and type of procedure to be performed. A 15 blade scalpel was used to make an incision along the mid axillary line between the left costal margin and left superior iliac crest. A 12 mm Visiport was then placed in the incision and dissection was performed through the subcutaneous tissue, external and internal oblique fascia, transversalis abdominous fascia, and peritoneum until the abdomen was entered. A laparoscopic camera was placed through the port which showed no injury to the intra-abdominal organs upon entry. A left upper quadrant and left lower quadrant 8 mm port were then placed under direct camera visualization. The da Atul robot was brought towards the operative field and docked appropriately, however during the attempted docking and difficulty with position of the left lower quadrant port the decision was made to place a new 8 mm port in the left lower quadrant for better intra-abdominal examination. Evaluation showed no evidence of adhesions to the abdominal wall. There was a hernia defect noted near the umbilicus which was approximately 4-5 cm in size. Superior to this at the level of the epigastrium there was an additional small hernia defect. The adipose tissue near the epigastric hernia defect was dissected free with Bovie cauterization and blunt dissection. This revealed a small 1-2 cm hernia defect. The decision was made to go ahead and repair these hernia defects utilizing a 9 cm and 12 cm mesh. First the decision was made to close the larger hernia defect using a 2-0 nonabsorbable V-Lock suture which was placed through the 12 mm port. This was used to approximate the hernia defect in a running fashion. Once this was performed the decision was made to go ahead and complete the surgical procedure by undocking the da Atul robot and bringing onto the operative field a 9 cm circular mesh and 12 cm circular mesh. A 3-0 Vicryl suture was placed in the center of both meshes and both meshes were introduced into the abdomen via the 12 mm port. A fascia grasper was placed in the center of the larger hernia defect between the running suture closure which was used to grasp the 12 cm mesh to approximate it against the abdominal wall. The fascia grasper was then placed through the epidermis through the center of the epigastric hernia defect which was used to grasp the 9cm circular mesh to retract it and approximate it against the abdominal wall. Once this was performed a 5 mm Protak was used to tack the perimeter of the mesh against the abdominal wall. A 5 mm absorbable tack baffle installer was then used to tack the inner perimeter of the mesh against the abdominal wall. The mesh was then briefly irrigated with normal saline solution and the sutures were cut at the level of the skin. The abdomen was desufflated after all ports removed. The abdominal fascia for the 12 mm port was closed with a 0 Vicryl suture. All remaining incisions were closed with 4-0 Monocryl sutures. Needle, sponge, and instrument counts were correct 2 and the incisions were covered with Dermabond. The patient was aroused from IV sedation, extubated in the operating room without complication, and transported to the recovery room stable condition.
[2017-02-10] MEDS ORDERED: *HR* HYDROmorphone 2 MG/ML SYRINGE ONE (12:37)
[2017-02-10] MEDS ORDERED: Acetaminophen IV 1,000 MG/100 ML INFUS..BTL IVPB ONE (14:41)
--- NOTE | 2017-02-10 17:25 | Anesthesia Evaluation Post Op ---
Date of Encounter: 02/10/17 Time of Encounter: 17:21 - Vital Signs Vital Signs: Vital Signs/O2 Sat/Glucose, Most Recent Temp Pulse Resp BP Pulse Ox 97.8 F 69 16 142/81 97 02/10/17 13:30 02/10/17 16:30 02/10/17 16:30 02/10/17 16:30 02/10/17 16:30 Blood Glucose* 161 - Lungs Lungs: Clear Ascult./Percussion - Airway Airway: Non-obstructed - Cardiovascular Regular Rate - Mental Status Mental Status: Alert & Oriented, Answers Appropriately, Baseline Status - Pain Pain Scale: 0 (denies pain, describes he feels general malaise) Pain Scale used: Numeric (1 - 10) - Nausea Vomiting Nausea Vomiting: Not Present - Hydration Hydration: Tolerates oral liquids Notes: 02/10/17 17:22 pt A&O x4, sitting upright at bedside, pt's vitals remain stable, taking in appropriate PO intake, pt states that he feels general malaise, pt able to urinate while standing at bedside, but does not feel well enough to ambulate, will admit overnight per Dr Guzman. - Discharge PostOp Status: Transfer Patient to floor
[2017-02-10] MEDS ORDERED: *HR* OxyCODONE/APAP 10/325 TABLET PO PRN (18:30)
[2017-02-10] MEDS: Ringers Solution, Lactated 1,000 ML IVC SCH (18:51)
[2017-02-11] MEDS: Ringers Solution, Lactated 1,000 ML IVC SCH (03:09)
[2017-02-11] MEDS ORDERED: Famotidine 20 MG TABLET PO PRN (09:45)
[2017-02-11] MEDS ORDERED: D5% in Water 1,000 ML IVC PRN (09:58)
[2017-02-11] MEDS ORDERED: Dextrose Gel 15 GM PO PRN ×2 (09:58)
[2017-02-11] MEDS ORDERED: *HR* Dextrose 50 % in Water (Syg) 50 ML SYRINGE IVP PRN (09:58)
[2017-02-11] MEDS ORDERED: Multivit/Ca/Min/Fe/FA 1 TAB TABLET PO SCH (10:00)
[2017-02-11] MEDS ORDERED: Insulin DETEMIR 100 UNIT/ML X5UNITS SQ SCH (10:00)
[2017-02-11] MEDS ORDERED: Cholecalciferol (D-3) 1,000 UNIT TABLET PO SCH (10:15)
[2017-02-11 10:31] VITALS: BP 100/57
[2017-02-11] MEDS ORDERED: Insulin LISPRO 300 UNITS/3 ML VIAL SQ SCH ×2 (11:30→21:00)
--- NOTE | 2017-02-11 12:30 | Discharge Summary ---
Date of Encounter: 02/11/17 Time of Encounter: 12:29 - Discharge Diagnosis (1) Incisional hernia Priority: Primary Status: Acute Qualifiers: Obstruction and gangrene presence: without obstruction or gangrene Qualified Code(s): K43.2 - Incisional hernia without obstruction or gangrene (2) Shortness of breath Priority: Primary Status: Acute - Discharge Medications Home Medications: Cholecalciferol (D-3) [Vitamin D] 2,000 unit PO DAILY 08/17/16 [History] Cyanocobalamin (Vitamin B-12) [Vitamin B12] 2,500 mcg PO DAILY 08/17/16 [History ] Dabigatran [Pradaxa] 150 mg PO BID 08/17/16 [History] Insulin Glargine,Hum.rec.anlog [Lantus Solostar] 50 units SQ QAM 08/17/16 [ History] Levothyroxine [Levothyroxine Sodium] 137 mcg PO QAM 08/17/16 [History] Mv-Mn/FA/Vit K/Lycop/Lut/Coq10 [Daily Multivitamin Capsule] 1 cap PO DAILY 08/17 [History] Omeprazole 20 mg PO DAILY 08/17/16 [History] Vit C/E/Zn/Coppr/Lutein/Zeaxan [Preservision Areds 2 Softgel] 2 cap PO BID 08/17 [History] Insulin ASPART [Novolog Flexpen] 8 unit SQ QPM 12/14/16 [History] OxyCODONE/APAP 10/325 [Percocet 10/325 MG] 1 each PO Q6HR PRN #39 tablet [Rx] Ranitidine HCl [Acid Signal Wirer] 150 mg PO HS PRN 02/10/17 [History] Allergies/Adverse Reactions: Allergies azithromycin [From Zithromax Z-Jp] Adverse Reaction (Verified 12/14/16 10:37) Headache moxifloxacin [From Avelox] Adverse Reaction (Verified 12/14/16 10:37) Gastrointestinal Upset Ucnqofv-Huf-Qhy Reductase Inhibitor [Statins] Adverse Reaction (Verified 10:37) Muscle Pain General Surgery Exam Initial Vital Signs Temp Pulse Resp BP Pulse Ox 98.1 F 87 18 153/94 98 02/10/17 09:30 02/10/17 09:30 02/10/17 09:30 02/10/17 09:30 02/10/17 09:30 Date of admission: 02/10/17 17:55 Primary care physician: Matt Martinez MD Discharging clinician: Varun Guzman Anticipated date of discharge: 02/11/17 - Patient Status Disposition: Home, Self-Care Condition: Good Overall status at discharge: patient is progressing back to baseline - Discharge Instructions Follow Up With: Matt Martinez MD [Primary Care Provider] - Anna Ryan CNP [Advanced Practice Nurse] - 02/26/17 11:15 am Additional Instructions: No heavy lifting greater than 15lbs for 6 weeks. May shower in two days. - Hospital Course Hospital course: Mr. Pike is a 61 year old male who underwent a rogbot assisted incisional hernia repair on 02/11/17 was noted to have symptoms of shortness of breath and dizziness following the procedure. He was kept overnight and noted to recover without incident. He tolerated PO diet and was discharged home after lunch with instructions to follow up in two weeks. Time spent discussing smoking cessation with patient: 3 to 10 minutes - Time Spent with Patient Total time spent providing and/or coordinating discharge services: Less than 30 minutes Labs on day of discharge: Labs from last 24 hours 02/11/17 02/11/17 02/11/17 11:27 09:07 00:50 POC Glucose 173 H 177 H 201 H 02/10/17 02/10/17 02/10/17 20:30 14:22 13:04 POC Glucose 234 H 238 H 161 H 02/10/17 09:28 POC Glucose 116 H
--- NOTE | 2017-02-11 15:21 | Electrocardiograph Report ---
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
[2017-02-12] MEDS ORDERED: Cyanocobalamin (B-12) 1,000 MCG TABLET PO SCH (09:00)
== END 2017-02-11 15:30 | disposition home or self-care (01) ==
LOC: SAMDAY 09:10 → 3ANU 09:10
PROVIDERS: ADMIT Surgery; ATTEND Surgery

== ENCOUNTER 2017-10-25 20:31 | Observation (INO) ==
--- NOTE | 2017-10-25 21:38 | Emergency Department Note ---
Disposition Clinical Impression: Chest pain Qualifiers: Chest pain type: unspecified Qualified Code(s): R07.9 - Chest pain, unspecified Disposition: Admitted As Inpatient Condition: Fair Referrals: Matt Martinez MD [Primary Care Provider] - Forms: ED Satisfaction Letter Time of Disposition: 22:18 Chest Pain HPI - General Chief Complaint: ED Chest Pain Stated Complaint: chest pain,sob Time Seen by Provider: 10/25/17 21:17 Source: patient, family Mode of arrival: ambulatory Limitations: no limitations Vital Signs Reviewed: Yes Nursing Notes Reviewed: Yes - History of Present Illness HPI Narrative: 62-year-old who comes in complaining of intermittent chest pain and dyspnea. She was seen here yesterday and told it was the antibiotics that he was on. Severity scale (1-10): 6 Quality: tightness, aching Pain Radiation: none Improves with: nothing Worsens with: exertion Treatments prior to arrival chest pain: none - Related Data Home Medications Medication Instructions Recorded Confirmed Cholecalciferol (D-3) [Vitamin D] 2,000 unit PO DAILY 08/17/16 10/14/17 Cyanocobalamin (Vitamin B-12) 2,500 mcg PO DAILY 08/17/16 10/14/17 [Vitamin B12] Dabigatran [Pradaxa] 150 mg PO BID 08/17/16 10/14/17 Insulin Glargine,Hum.rec.anlog 52 units SQ QAM 08/17/16 10/14/17 [Lantus Solostar] Levothyroxine [Levothyroxine 137 mcg PO Q48H 08/17/16 10/14/17 Sodium] Mv-Mn/FA/Vit K/Lycop/Lut/Coq10 1 cap PO DAILY 08/17/16 10/14/17 [Daily Multivitamin Capsule] Omeprazole 20 mg PO DAILY 08/17/16 10/14/17 Vit C/E/Zn/Coppr/Lutein/Zeaxan 2 cap PO BID 08/17/16 10/14/17 [Preservision Areds 2 Softgel] Insulin ASPART [Novolog Flexpen] 16 unit SQ BID 12/14/16 10/14/17 Finasteride [Proscar] 5 mg PO DAILY 10/14/17 10/14/17 Levothyroxine Sodium [Levo-T] 150 mcg PO Q48H 10/14/17 10/14/17 Previous Rx's Medication Instructions Recorded HYDROcodone/Acet 7.5/325 mg [[place] 1 tab PO Q6H PRN 3 Days #12 tablet 10/14/17 7.5-325 mg] Allergies Allergy/AdvReac Type Severity Reaction Status Date / Time azithromycin AdvReac Headache Verified 10/14/17 12:34 [From Zithromax Z-Jp] moxifloxacin [From Avelox] AdvReac Gastrointestinal Verified 10/14/17 12:34 Upset Iiiubsc-Tpl-Rbn Reductase AdvReac Muscle Pain Verified 10/14/17 12:34 Inhibitor [Statins] All systems ED: reviewed and negative except as stated. Constitutional: Denies: fever, chills, weakness, weight change Eyes: Denies: eye pain, eye discharge, vision change ENT ED: Denies: ear pain, throat pain, dental pain, hearing loss, epistaxis, congestion, dysphagia Cardiovascular: Reports: chest pain. Denies: palpitations, dyspnea on exertion , edema, syncope Respiratory: Reports: dyspnea. Denies: cough, wheezes, hemoptysis, stridor Gastrointestinal: Denies: abdominal pain, nausea, vomiting, diarrhea, constipation, hematemesis, melena, hematochezia Genitourinary: Denies: urgency, dysuria, frequency, hematuria Musculoskeletal: Denies: back pain, neck pain, arthralgia, myalgia Integumentary: Denies: rash, abrasion, lesions Neurological: Denies: headache, weakness, numbness, paresthesias, confusion, abnormal gait, vertigo Psychiatric: Denies: anxiety, depression, suicidal thoughts, homicidal thoughts , auditory hallucinations, visual hallucinations Endocrine: Denies: fatigue Hematological/Lymphatic: Denies: easy bleeding, easy bruising Allergic/Immunologic: Denies: facial swelling, urticaria Chest Pain PMH - Past Medical History Medical history: Reports: arthritis, atrial fibrillation, GERD, hyperlipidemia, hypertension, other Surgical history: Reports: appendectomy, cholecystectomy, pacemaker/AICD, thyroidectomy, other Psychiatric history: Reports: no psych history - Social History Smoking Status: Former smoker Alcohol use: Reports: none Drug use: Reports: none Physical Exam - General Limitations: no limitations General appearance: alert, in no apparent distress - Head Head exam: atraumatic, normocephalic, normal inspection - Eye Eye exam: Present: normal appearance, PERRL, EOMI - ENT ENT exam: normal exam - Neck Neck exam: Present: normal inspection, full ROM, trachea midline - Chest Chest inspection: Present: normal inspection, symmetric chest wall rise - Respiratory Respiratory exam: Present: normal lung sounds bilaterally - Cardiovascular Cardiovascular exam: Present: regular rate, normal rhythm, normal heart sounds - Abdominal Exam Abdominal exam: Present: soft, Non-Tender. Absent: tenderness, distention, guarding, rebound, rigidity - Extremities Exam Extremities exam: Present: normal inspection, full ROM. Absent: tenderness, pedal edema - Expanded Lower Extremity Exam Neurovascular/Tendon exam: Absent: motor deficit, sensory deficit, tendon deficit Gait: observed and normal - Back Exam Back exam: Present: normal inspection, full ROM. Absent: tenderness - Neurological Exam Neurological exam: Present: alert, oriented X3 - Psychiatric Psychiatric exam: Present: normal affect, normal mood - Skin Skin exam: Present: warm, dry, intact, normal color Course - Reevaluation(s) Reevaluation #1: 62-year-old with chest pain and dyspnea. Workup here is negative. We'll go ahead and admit Time: 22:16 - Consultations Consultation #1: discussed with Dr. Webb, admit Time: 22:17 Vital Signs Temperature 98.3 F 10/25/17 20:45 Pulse Rate 77 10/25/17 20:45 Respiratory Rate 16 10/25/17 20:45 Blood Pressure 157/92 10/25/17 20:45 O2 Sat by Pulse Oximetry 98 10/25/17 20:45 Temperature 98.3 F 10/25/17 20:45 Pulse Rate 77 10/25/17 20:45 Respiratory Rate 16 10/25/17 20:45 Blood Pressure 157/92 10/25/17 20:45 O2 Sat by Pulse Oximetry 98 10/25/17 20:45 Oxygen Delivery Oxygen Delivery Room Air Chest Pain - Lab Data Lab results reviewed: Yes I reviewed the patient's lab results. Result diagrams: 10/25/17 21:29 10/25/17 21:29 Lab Results 10/25/17 10/25/17 10/25/17 Range/Units 21:29 21:29 21:29 WBC 7.8 (4.3-11.1) K/mcL RBC 5.03 (4.19-5.50) M/mcL Hgb 13.1 (12.9-16.9) g/dL Hct 42.3 (37.5-50.1) % MCV 84.1 (83.0-100.0) fL MCH 26.0 L (28.0-33.3) pg MCHC 31.0 L (31.6-35.5) g/dL RDW 13.5 (11.5-14.5) % Plt Count 236 (140-400) K/mcL MPV 10.8 (9.4-12.4) fL Immature Gran % 0.3 (0-4) % Seg Neutrophils % 65.3 % Lymphocytes % 26.1 % Monocytes % 6.7 % Eosinophils % 1.3 % Basophils % 0.3 % Neutrophils # 5.1 (1.6-8.9) K/mcL Lymphocytes # 2.0 (0.6-4.6) K/mcL Monocytes # 0.5 (0.0-1.3) K/mcL Eosinophils # 0.1 (0.0-0.6) K/mcL Basophils # 0.0 (0.0-0.2) K/mcL PT 12.2 H (9.4-12.1) Seconds INR 1.1 APTT 44.8 H (26.0-36.0) Seconds Sodium 135 L (136-145) mEq/L Potassium 4.3 (3.5-5.1) mEq/L Chloride 102 (98-107) mEq/L Carbon Dioxide 28 (23-29) mEq/L BUN 12 (8-23) mg/dL Creatinine 0.95 (0.70-1.30) mg/dL Est GFR ( Amer) > 60 (> 60) Est GFR (Non-Af Amer) > 60 (> 60) BUN/Creatinine Ratio 13 (6-26) Glucose 183 H (70-105) mg/dL Calculated Osmolality 284 (280-300) Calcium 10.0 (8.6-10.3) mg/dL Troponin I (< 0.04) ng/mL 10/25/17 Range/Units 21:29 WBC (4.3-11.1) K/mcL RBC (4.19-5.50) M/mcL Hgb (12.9-16.9) g/dL Hct (37.5-50.1) % MCV (83.0-100.0) fL MCH (28.0-33.3) pg MCHC (31.6-35.5) g/dL RDW (11.5-14.5) % Plt Count (140-400) K/mcL MPV (9.4-12.4) fL Immature Gran % (0-4) % Seg Neutrophils % % Lymphocytes % % Monocytes % % Eosinophils % % Basophils % % Neutrophils # (1.6-8.9) K/mcL Lymphocytes # (0.6-4.6) K/mcL Monocytes # (0.0-1.3) K/mcL Eosinophils # (0.0-0.6) K/mcL Basophils # (0.0-0.2) K/mcL PT (9.4-12.1) Seconds INR APTT (26.0-36.0) Seconds Sodium (136-145) mEq/L Potassium (3.5-5.1) mEq/L Chloride (98-107) mEq/L Carbon Dioxide (23-29) mEq/L BUN (8-23) mg/dL Creatinine (0.70-1.30) mg/dL Est GFR ( Amer) (> 60) Est GFR (Non-Af Amer) (> 60) BUN/Creatinine Ratio (6-26) Glucose (70-105) mg/dL Calculated Osmolality (280-300) Calcium (8.6-10.3) mg/dL Troponin I < 0.03 (< 0.04) ng/mL - Radiology Data Radiology results reviewed: Yes I reviewed the patient's radiology results. Chest X-Ray 10/25/17 20:47 IMPRESSION: Stable chest x-ray. No acute disease. D/ / Toby Ochoa MD / Toby Ochoa MD Interpreting Provider: Toby Ochoa MD - EKG Data EKG attestation: Yes I reviewed and interpreted this EKG. EKG shows normal: sinus rhythm Rate: normal Rhythm: NSR [place]/QRS: LBBB Interpretation: no acute changes Heart Score - Score History: Moderately Suspicious EKG: Non Specific repolarisation Disturbance Age: 45-65 Risk Factors: Equal/Greater than 3 risk factor or history of atherosclerotic disease Troponin: Less than normal limit HEART Score Total: 5
[2017-10-25 21:40] LABS: Basophils % 0.3 %; Eosinophils # 0.1 K/mcL (0.0-0.6); Eosinophils % 1.3 %; Hematocrit 42.3 % (37.5-50.1); Hemoglobin 13.1 g/dL (12.9-16.9); Immature Granulocytes % 0.3 % (0-4); Lymphocytes % 26.1 %; Mean Corpuscular Volume 84.1 fL (83.0-100.0); Mean Platelet Volume 10.8 fL (9.4-12.4); Monocytes # 0.5 K/mcL (0.0-1.3); Monocytes % 6.7 %; Neutrophils # 5.1 K/mcL (1.6-8.9); Platelet Count 236 K/mcL (140-400); Red Blood Count 5.03 M/mcL (4.19-5.50); Red Cell Distribution Width 13.5 % (11.5-14.5); Segmented Neutrophils % 65.3 %
[2017-10-25 21:44] LABS: INR 1.1; Prothrombin Time 12.2 Seconds (9.4-12.1)
[2017-10-25 21:47] LABS: Activated Partial Thrombo Time 44.8 Seconds (26.0-36.0)
[2017-10-25 21:58] LABS: BUN/Creatinine Ratio 13 (6-26); Blood Urea Nitrogen 12 mg/dL (8-23); Carbon Dioxide 28 mEq/L (23-29); Chloride 102 mEq/L (98-107); Glucose 183 mg/dL (70-105); Osmolality,Calculated 284 (280-300); Potassium 4.3 mEq/L (3.5-5.1); Sodium 135 mEq/L (136-145); eGFR For African Americans > 60 (> 60); eGFR For Non-African Americans > 60 (> 60)
[2017-10-25] MEDS ORDERED: Aspirin 81 MG TAB.CHEW ONE (23:24)
[2017-10-26] MEDS ORDERED: Naloxone 0.4 MG/ML INJ IVP PRN (02:37)
--- NOTE | 2017-10-26 02:43 | Internal Med History&Physical ---
Date of Encounter: 10/26/17 Time of Encounter: 02:43 Assessment and Plan (1) Chest pain Current visit: Yes Status: Acute Patient is presented with chest pain. Likely is from the adverse effect of the medication which she received. We will do chest pain rule out protocol. If that protocol turns out to be negative for chest pain workup then consider workup for the drug related adverse reaction. Qualifiers: Chest pain type: unspecified Qualified Code(s): R07.9 - Chest pain, unspecified (2) Adverse effects of medication Current visit: No Status: Acute Patient likely has some adverse effect of the medication. If the troponins are negative then this should be the main diagnosis and need further workup in that area Qualifiers: Encounter type: subsequent encounter Qualified Code(s): T88.7XXD - Unspecified adverse effect of drug or medicament, subsequent encounter (3) CAD (coronary artery disease) Current visit: No Status: Chronic Patient is known to have a coronary artery disease. We will follow the chest pain rule out protocol. Qualifiers: Coronary Disease-Associated Artery/Lesion type: [place] artery [place] vs. transplanted heart: [place] heart Associated angina: without angina Qualified Code(s): I25.10 - Atherosclerotic heart disease of [place] coronary artery without angina pectoris (4) Atrial fibrillation Current visit: No Status: Chronic Patient is known to have atrial fibrillation. Rate control: Metoprolol Anticoagulation:Pradaxa Qualifiers: Atrial fibrillation type: permanent Qualified Code(s): I48.2 - Chronic atrial fibrillation (5) Diabetes Current visit: No Status: Chronic Patient is known to have diabetes. Patient is presently on home dose of insulin. We will continue the home dose. We will follow the recommendations from subcutaneous insulin order set. 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 Internal Medicine - H&P: HPI Chief complaint: Chest pain Admitted From: Emergency Dept Plans for Post Hospital Care: Home History of present illness: PCP: Dr. Martinez Brief past medical history: Patient has atrial fibrillation, GERD, hypertension , dyslipidemia, pacemaker/AICD History of present medical illness: 62-year-old gentleman who has a background history of above-mentioned conditions was evaluated by PCP and was started on antibiotics for possible chest cold. Patient was complaining of persistent shortness of breath/chest pressure and discomfort. Patient was yesterday evaluated in the emergency room and was told that one of the antibiotics is responsible for his symptoms. Patient went home yesterday but came back today again with the same symptoms. Patient was complaining of chest pain which is retrosternal, localized, nonirradiated and associated with movement and relieved by rest. In view of the persistent symptoms patient came to emergency room for further evaluation. Workup in the emergency room: Patient was evaluated in the emergency room. In view of the persistent symptoms and new onset of chest pain was decided to admit the patient. Reason for admission: Chest pain to rule out ACS Past Med Surg Social Fam HX - Past Medical History Medical history: arthritis, atrial fibrillation, GERD, hyperlipidemia, other Psychiatric history: no psych history - Past Surgical History Surgical History: appendectomy, cholecystectomy, pacemaker/AICD, thyroidectomy, other - Social History Smoking Status: Former smoker Smokeless Tobacco Status: No Alcohol use: none Drug use: none - Family History Mother Living Status: Hx Family Cancer: Yes Father Living Status: Hx Family Cardiac Disorders: Yes Internal Medicine - H&P: Meds Cholecalciferol (D-3) [Vitamin D] 2,000 unit PO DAILY 08/17/16 [History] Cyanocobalamin (Vitamin B-12) [Vitamin B12] 2,500 mcg PO DAILY 08/17/16 [History ] Dabigatran [Pradaxa] 150 mg PO BID 08/17/16 [History] Insulin Glargine,Hum.rec.anlog [Lantus Solostar] 50 units SQ QAM 08/17/16 [ History] Levothyroxine [Levothyroxine Sodium] 137 mcg PO DAILY 08/17/16 [History] Mv-Mn/FA/Vit K/Lycop/Lut/Coq10 [Daily Multivitamin Capsule] 1 cap PO DAILY 08/17 [History] Omeprazole 20 mg PO DAILY 08/17/16 [History] Vit C/E/Zn/Coppr/Lutein/Zeaxan [Preservision Areds 2 Softgel] 2 cap PO BID 08/17 [History] Insulin ASPART [Novolog Flexpen] 16 unit SQ BID 12/14/16 [History] Levothyroxine Sodium [Levo-T] 150 mcg PO Q72H 10/14/17 [History] 3 Allergy/AdvReac Type Severity Reaction Status Date / Time azithromycin AdvReac Headache Verified 10/14/17 12:34 [From Zithromax Z-Jp] moxifloxacin [From Avelox] AdvReac Gastrointestinal Verified 10/14/17 12:34 Upset Jemivcg-Ijq-Ucb Reductase AdvReac Muscle Pain Verified 10/14/17 12:34 Inhibitor [Statins] All Systems PM: A 10-system review of systems was performed and is negative for pertinent findings except as documented above in the HPI. - Constitutional Constitutional: no chills, no fever(s), no night sweats - EENT Eyes: no change in vision, no discharge, no pain, no photophobia Ears: no ear discharge, no ear pain, no tinnitus Nose, mouth and throat: no dysphagia, no nasal discharge, no neck pain, no sore throat - Cardiovascular Cardiovascular ROS IM: chest pain, diaphoresis, palpitations, no dyspnea, no lightheadedness, no syncope - Respiratory Respiratory: no cough, no dyspnea, no wheezing, no excessive phlegm production - Gastrointestinal Gastrointestinal: no abdominal pain, no diarrhea, no hematemesis, no hematochezia, no melena, no nausea, no vomiting - Musculoskeletal Musculoskeletal ROS IM: no numbness, no tingling - Integumentary Integumentary IM: no rash, no unusual bruising - Neurological Neurological ROS: no confusion, no convulsions, no focal weakness, no numbness, no tingling, no tremor(s) - Hematologic/Lymphatic Hematologic/Lymphatic: no easy bruising - Constitutional Vitals: Temp Pulse Resp BP Pulse Ox 97.6 F 69 16 134/80 99 10/26/17 00:07 10/26/17 00:07 10/26/17 00:07 10/26/17 00:07 10/26/17 00:07 General appearance: Present: A&O X 3, pleasant, no acute distress, answers questions appropriately - Head Head exam: Present: atraumatic, normocephalic - Eye Eye exam: Present: PERRL, conjuntiva pink, sclera anicteric Pupils: Present: PERRL - Neck Neck exam general surgery: Present: supple, trachea midline. Absent: lymphadenopathy - Respiratory Respiratory exam: Present: CTAB. Absent: accessory muscle use, rales, rhonchi, wheezes - Cardiovascular Cardiovascular exam: Present: RRR, +S1, +S2. Absent: diastolic murmur, gallop, rubs, systolic murmur - GI/Abdominal GI/Abdominal exam: Present: normal bowel sounds, soft, no peritoneal signs. Absent: distended, tenderness - Extremities Exam Extremities exam: Present: warm, radial pulses palpable and symmetrical. Absent : calf tenderness, cyanotic, pedal edema - Neurological Exam Neurological exam: Present: CN II-XII intact, oriented X3, no focal deficits. Absent: pronater drift, facial droop, speech deficit - Skin Skin exam: Present: dry, intact Internal Med - H&P Results - Labs CBC & Chem 7: 10/25/17 21:29 10/25/17 21:29
[2017-10-26] MEDS ORDERED: *HR* Dextrose 50 % in Water (Syg) 50 ML SYRINGE IVP PRN (04:19)
[2017-10-26] MEDS ORDERED: D5% in Water 1,000 ML IVC PRN (04:19)
[2017-10-26] MEDS ORDERED: Dextrose Gel 15 GM/37.5 ML TUBE PO PRN ×2 (04:19)
[2017-10-26 04:52] LABS: Basophils % 0.3 %; Eosinophils # 0.2 K/mcL (0.0-0.6); Eosinophils % 2.4 %; Hematocrit 38.7 % (37.5-50.1); Hemoglobin 12.1 g/dL (12.9-16.9); Immature Granulocytes % 0.2 % (0-4); Lymphocytes % 30.8 %; Mean Corpuscular HGB Conc 31.3 g/dL (31.6-35.5); Mean Corpuscular Hemoglobin 26.4 pg (28.0-33.3); Mean Corpuscular Volume 84.5 fL (83.0-100.0); Mean Platelet Volume 11.1 fL (9.4-12.4); Monocytes # 0.6 K/mcL (0.0-1.3); Monocytes % 9.1 %; Neutrophils # 3.8 K/mcL (1.6-8.9); Platelet Count 208 K/mcL (140-400); Red Blood Count 4.58 M/mcL (4.19-5.50); Red Cell Distribution Width 13.5 % (11.5-14.5); Segmented Neutrophils % 57.2 %
[2017-10-26 04:57] LABS: INR 1.2; Prothrombin Time 12.6 Seconds (9.4-12.1)
[2017-10-26 05:00] LABS: Activated Partial Thrombo Time 37.7 Seconds (26.0-36.0)
[2017-10-26 05:07] LABS: Alanine Aminotransferase 25 Units/L (7-52); Albumin 3.5 g/dL (3.5-5.7); Alkaline Phosphatase 74 Units/L (34-104); Aspartate Amino Transferase 23 Units/L (13-39); BUN/Creatinine Ratio 14 (6-26); Bilirubin,Total 0.7 mg/dL (0.3-1.0); Blood Urea Nitrogen 13 mg/dL (8-23); Calcium 9.6 mg/dL (8.6-10.3); Carbon Dioxide 32 mEq/L (23-29); Chloride 103 mEq/L (98-107); Chol/HDL Ratio 4.7 (0-4.9); Cholesterol 131 mg/dL (< 200); Globulin 3.5 g/dL (2.4-3.5); Glucose 120 mg/dL (70-105); HDL Cholesterol 28 mg/dL (40-59); LDL Cholesterol,Calculated 79 mg/dL (0-99); Magnesium 1.8 mg/dL (1.6-2.6); Osmolality,Calculated 289 (280-300); Phosphorous 3.6 mg/dL (2.7-4.5); Potassium 3.8 mEq/L (3.5-5.1); Sodium 139 mEq/L (136-145); Triglycerides 119 mg/dL (< 150); eGFR For African Americans > 60 (> 60); eGFR For Non-African Americans > 60 (> 60)
[2017-10-26] MEDS: Insulin LISPRO 300 UNITS/3 ML VIAL SQ SCH ×5 (08:00→20:47)
[2017-10-26] MEDS: *HR* Dabigatran 150 MG CAPSULE PO SCH ×2 (09:24→20:46)
[2017-10-26] MEDS: Cyanocobalamin (B-12) 1,000 MCG TABLET PO SCH (09:24)
[2017-10-26] MEDS: Cholecalciferol (D-3) 1,000 UNIT TABLET PO SCH (09:24)
[2017-10-26] MEDS: Multivit/Ca/Min/Fe/FA 1 TAB TABLET PO SCH (09:24)
[2017-10-26] MEDS: Insulin DETEMIR 100 UNIT/ML X5UNITS SQ SCH (09:25)
[2017-10-26] MEDS: PRESERVISION AREDS PO SCH ×2 (09:27→20:46)
[2017-10-26] MEDS ORDERED: Acetaminophen 325 MG TABLET PO PRN (09:58)
[2017-10-26] MEDS ORDERED: ALPRAZolam 0.25 MG TABLET PO PRN (10:44)
--- NOTE | 2017-10-26 10:47 | Internal Med Progress Note ---
Date of Encounter: 10/26/17 Time of Encounter: 10:44 - Assessment and plan (1) Chest pain Current Visit: Yes Status: Resolved Assessment and plan: Presentation of retrosternal, localized and nonradiating, chest pain/pressure and shortness of breath. Troponins negative x3, EKG unremarkable, no changes, no ST elevations or depression ACS ruled out. Discussed having a stress test, however he has declined at this time. 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 He also has macular degeneration and his doctor told him there is a chance that he will lose all vision during the procedure. He reports that he has been anxious since hearing this news. Gave 1-time dose of xanax now, keep patient overnight to monitor for adverse affects. Plan to switch to citralopram in the morning prior to discharge. Discussed the need for outpatient follow-up with PCP for anxiety. -Xanax now for anxiety -citalopram 10 mg to start in the morning (3) Atrial fibrillation Current Visit: No Status: Chronic Assessment and plan: Hx of PAF. Tele shows avg. rate of 70. Continue BB for rate control and pradaxa for anticoagulation Qualifiers: Atrial fibrillation type: permanent Qualified Code(s): I48.2 - Chronic atrial fibrillation (4) Diabetes Current Visit: Yes Status: Chronic Assessment and plan: Known h/o diabetes Continue basal insulin at home dose Continue regular insulin at home dose 16 units SQ BID and add LSSIC with a diabetic/cardiac diet Qualifiers: Diabetes mellitus type: type 2 Diabetes mellitus complication status: without complication Diabetes mellitus fci insulin use: without tank terminal gauger use Qualified Code(s): E11.9 - Type 2 diabetes mellitus without complications (5) CAD (coronary artery disease) Current Visit: Yes Status: Chronic Assessment and plan: Last echo was 12/22, EF of 60% with intermediate diastolic dysfunction and atypical septal wall motion secondary to pacer/AICD Continue ASA, pradaxa, and BB Qualifiers: Coronary Disease-Associated Artery/Lesion type: [place] artery [place] vs. transplanted heart: [place] heart Associated angina: without angina Qualified Code(s): I25.10 - Atherosclerotic heart disease of [place] coronary artery without angina pectoris (6) Shortness of breath Current Visit: Yes Status: Acute Assessment and plan: Continues to endorse intermittent shortness of breath ACS ruled out; I suspect shortness of breath and chest pain secondary to anxiety (7) DVT prophylaxis Current Visit: Yes Status: Acute Assessment and plan: Pradaxa - Time Spent With Patient 25 - 35 minutes - Subjective Interval history: Reports that his chest pain has resolved. However, he is still intermittently short of breath but is attributing this to being anxious about an upcoming surgery. Reports his anxiety has improved since our initial conversation this morning. He denies any other concerns at this time. - Constitutional Vitals: Temp Pulse Resp BP Pulse Ox 97.9 F 70 18 132/85 98 10/26/17 07:34 10/26/17 07:34 10/26/17 07:34 10/26/17 07:34 10/26/17 09:34 General appearance: Present: mild distress (anxious appearing), A&O X 3, pleasant, answers questions appropriately - Respiratory Respiratory exam: Present: CTAB. Absent: accessory muscle use, rhonchi, wheezes - Cardiovascular Cardiovascular exam: Present: RRR, +S1, +S2. Absent: diastolic murmur, gallop, rubs, systolic murmur - GI/Abdominal GI/Abdominal exam: Present: normal bowel sounds, soft, no peritoneal signs. Absent: distended, tenderness - Extremities Exam Extremities exam: Present: warm, radial pulses palpable and symmetrical. Absent : calf tenderness, cyanotic, pedal edema - Neurological Exam Neurological exam: Present: alert, oriented X3. Absent: facial droop, speech deficit - Psychiatric Psychiatric exam: Present: anxious Additional comments: crying Internal Medicine: Result - Labs CBC & Chem 7: 10/26/17 04:02 10/26/17 04:02 Labs: Short CBC 10/26/17 Range/Units 04:02 WBC 6.6 (4.3-11.1) K/mcL Hgb 12.1 L (12.9-16.9) g/dL Hct 38.7 (37.5-50.1) % Plt Count 208 (140-400) K/mcL Neutrophils # 3.8 (1.6-8.9) K/mcL BMP 02/19/18 04:02 Sodium 139 Potassium 3.8 Chloride 103 Carbon Dioxide 32 H BUN 13 Creatinine 0.92 Glucose 120 H Calcium 9.6 Cardiac Enzymes 10/26/17 Range/Units 04:02 Troponin I < 0.03 (< 0.04) ng/mL Liver Function 10/26/17 Range/Units 04:02 Total Bilirubin 0.7 (0.3-1.0) mg/dL AST 23 (13-39) Units/L ALT 25 (7-52) Units/L Alkaline Phosphatase 74 (34-104) Units/L Albumin 3.5 (3.5-5.7) g/dL - ABG Interpretation ABG results: PT/INR, D-dimer PT 12.6 Seconds (9.4-12.1) H 10/26/17 04:02 Consult Discharge Plan - Plan Referrals: Matt Martinez MD [Primary Care Provider] -
--- NOTE | 2017-10-26 15:21 | Orthopedics Progress Note ---
Date of Encounter: 10/26/17 Time of Encounter: 15:19 Subjective Interval history: S: Patient seen at the bedside related to his left ring finger. Minimal incisional pain. O: Left ring finger wound healing nicely. No concern for infection. Stitches removed Pathology shows ganglion cyst A: Post cyst removal from left ring finger P: Motion exercises Activities as tolerated from the ring finger standpoint. Follow up in the office in 4 weeks for a final clinical evaluation or sooner if needed. Objective Vital signs: Vital Signs Temp Pulse Resp BP Pulse Ox 10/26/17 11:33 97.9 F 71 18 114/61 99 10/26/17 09:34 98 10/26/17 07:34 97.9 F 70 18 132/85 98 10/26/17 03:43 97.5 F L 70 16 124/77 100 10/26/17 00:07 97.6 F 69 16 134/80 99 Intake and Output 10/25/17 10/26/17 10/26/17 23:59 07:59 15:59 Intake Total 120 / 120 60 / 60 Output Total 1325 / 1325 Balance -1205 / -1205 60 / 60 Intake: Oral 120 / 120 60 / 60 Output: Urine 1325 / 1325 Other: Meal Breakfast Percent of Meal Consumed 35% Weight 127.006 kg Blood Glucose* 87 189 Patient Weight 10/26/17 23:59 Weight 127.006 kg - Labs CBC & BMP: 10/26/17 04:02 10/26/17 04:02 Labs: Abnormal lab results Hgb 12.1 g/dL (12.9-16.9) L 10/26/17 04:02 MCH 26.4 pg (28.0-33.3) L 10/26/17 04:02 MCHC 31.3 g/dL (31.6-35.5) L 10/26/17 04:02 PT 12.6 Seconds (9.4-12.1) H 10/26/17 04:02 APTT 37.7 Seconds (26.0-36.0) H 10/26/17 04:02 Carbon Dioxide 32 mEq/L (23-29) H 10/26/17 04:02 Glucose 120 mg/dL (70-105) H 10/26/17 04:02 Albumin/Globulin Ratio 1.0 (1.1-2.2) L 10/26/17 04:02 HDL Cholesterol 28 mg/dL (40-59) L 10/26/17 04:02 Consult Discharge Plan - Plan Referrals: Matt Martinez MD [Primary Care Provider] -
[2017-10-26] MEDS ORDERED: Aspirin 81 MG TAB.CHEW PO ONE (23:21)
[2017-10-27] MEDS: PRESERVISION AREDS PO SCH (08:10)
[2017-10-27] MEDS: Cholecalciferol (D-3) 1,000 UNIT TABLET PO SCH (08:13)
[2017-10-27] MEDS: Multivit/Ca/Min/Fe/FA 1 TAB TABLET PO SCH (08:14)
[2017-10-27] MEDS: Cyanocobalamin (B-12) 1,000 MCG TABLET PO SCH (08:15)
[2017-10-27] MEDS: *HR* Dabigatran 150 MG CAPSULE PO SCH (08:15)
[2017-10-27] MEDS: Insulin DETEMIR 100 UNIT/ML X5UNITS SQ SCH (08:21)
[2017-10-27 08:24] VITALS: BP 131/86
[2017-10-27] MEDS: Insulin LISPRO 300 UNITS/3 ML VIAL SQ SCH ×3 (08:24→12:38)
--- NOTE | 2017-10-27 09:58 | Discharge Summary ---
- NOTES TO OUTPATIENT PROVIDER Notes to Outpatient Provider: Anxiety needs to be addressed. Received one-time dose Xanax and hospital and was discharged home on Celexa. Orders not resulted at time of discharge: Pending orders 10/27/17 09:00 SP pharm nuclear stress Routine Date of Encounter: 10/27/17 Time of Encounter: 09:54 - Discharge Diagnosis (1) Anxiety and depression Priority: Primary Status: Acute Comments: patient reported concern over upcoming eye surgery or cataracts. Has macular degeneration and was told there is a chance he may loose vision during the procedure. Has been anxious since hearing this news. Suspect anxiety contributing to chest pain. Received a one-time dose Xanax with reported lethargy. Patient agreeable to trial low-dose Celexa. Will need to follow-up with PCP for further/long-term anxiety management. (2) CAD (coronary artery disease) Priority: Secondary Status: Chronic Comments: per hx. Presented with atypical chest pain. Serial troponin negative. EKG without acute ST changes. 12/2016 TTE with EF of 60%, intermediate diastolic dysfunction and atypical septal wall motion secondary to pacer/AICD. Offered inpatient stress test and repeat echo however patient declined as he felt chest pain was secondary to anxiety. Continue ASA, pradaxa, and BB. 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 Qualifiers: Coronary Disease-Associated Artery/Lesion type: [place] artery [place] vs. transplanted heart: mo[place]gan heart Associated angina: without angina Qualified Code(s): I25.10 - Atherosclerotic heart disease of [place] coronary artery without angina pectoris (3) Atrial fibrillation Priority: Secondary Status: Chronic Comments: per hx. rate controlled. Continue home BB, Pradaxa Qualifiers: Atrial fibrillation type: permanent Qualified Code(s): I48.2 - Chronic atrial fibrillation (4) Ganglion cyst Priority: Secondary Status: Acute Comments: to left ring finger. Recently had cyst removed outpatient per Dr. Sethi. Sutures removed 10/26/17. Will need to follow-up with or so in 4 weeks as previously planned. (5) Diabetes Priority: Secondary Status: Chronic Comments: per hx. Blood sugars variable. Cont home diabetes medication regimen. Follow- up with PCP in 1-2 weeks. 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 Pike is a 62 year old male past medical history CAD, atrial fibrillation, diabetes, and hypothyroidism who presented to [facility] on with complaints of chest pain. ACS was ruled out with negative serial troponins and nonischemic EKG changes. He was offered inpatient stress test and echo however he declined. Suspect chest pain secondary to anxiety. Symptoms resolved without intervention. He was discharged home on low-dose SSRI with outpatient follow-up. See assessment and plan for further details. Discharge discussed with: patient - Time Spent with Patient Total time spent providing and/or coordinating discharge services: - Discharge Medications Prescriptions: Citalopram [CeleXA] 10 mg PO DAILY #30 tablet Home Medications: Cholecalciferol (D-3) [Vitamin D] 2,000 unit PO DAILY 08/17/16 [History] Cyanocobalamin (Vitamin B-12) [Vitamin B12] 2,500 mcg PO DAILY 08/17/16 [History ] Dabigatran [Pradaxa] 150 mg PO BID 08/17/16 [History] Insulin Glargine,Hum.rec.anlog [Lantus Solostar] 52 units SQ QAM 08/17/16 [ History] Levothyroxine [Levothyroxine Sodium] 137 mcg PO Q48H 08/17/16 [History] Mv-Mn/FA/Vit K/Lycop/Lut/Coq10 [Daily Multivitamin Capsule] 1 cap PO DAILY 08/17 [History] Omeprazole 20 mg PO BID 08/17/16 [History] Vit C/E/Zn/Coppr/Lutein/Zeaxan [Preservision Areds 2 Softgel] 2 cap PO BID 08/17 [History] Insulin ASPART [Novolog Flexpen] 16 unit SQ BID 12/14/16 [History] Levothyroxine Sodium [Levo-T] 150 mcg PO Q48H 10/14/17 [History] Finasteride [Proscar] 5 mg PO DAILY 10/26/17 [History] Citalopram [CeleXA] 10 mg PO DAILY #30 tablet 10/27/17 [Rx] Allergies/Adverse Reactions: 3 Allergy/AdvReac Type Severity Reaction Status Date / Time azithromycin AdvReac Headache Verified 10/14/17 12:34 [From Zithromax Z-Jp] cefdinir AdvReac Anxiety Verified 10/26/17 04:42 moxifloxacin [From Avelox] AdvReac Gastrointestinal Verified 10/14/17 12:34 Upset Saccharomyces boulardii AdvReac Anxiety Verified 10/26/17 04:41 [From Florastor] Rskgspd-Edz-Rbr Reductase AdvReac Muscle Pain Verified 10/14/17 12:34 Inhibitor [Statins] Date of admission: 10/25/17 23:16 Primary care physician: Matt Martinez MD Discharging clinician: Aicha Biggs Anticipated date of discharge: 10/27/17 - Constitutional Vitals: Temp Pulse Resp BP Pulse Ox 97.7 F 70 15 131/86 97 10/27/17 08:18 10/27/17 08:18 10/27/17 08:18 10/27/17 08:18 10/27/17 08:18 General appearance: Present: A&O X 3, pleasant, answers questions appropriately - Head Head exam: Present: atraumatic, normocephalic - Eye Eye exam: Present: PERRL, conjuntiva pink, sclera anicteric Pupils: Present: PERRL - Neck Neck exam general surgery: Present: supple, trachea midline. Absent: lymphadenopathy - Respiratory Respiratory exam: Present: CTAB. Absent: accessory muscle use, rales, rhonchi, wheezes - Cardiovascular Cardiovascular exam: Present: +S1, +S2. Absent: diastolic murmur, gallop, rubs , systolic murmur - GI/Abdominal GI/Abdominal exam: Present: normal bowel sounds, soft, no peritoneal signs. Absent: distended, tenderness - Extremities Exam Extremities exam: Present: warm, radial pulses palpable and symmetrical. Absent : calf tenderness, cyanotic, pedal edema - Neurological Exam Neurological exam: Present: CN II-XII intact, oriented X3, no focal deficits. Absent: pronater drift, facial droop, speech deficit - Skin Skin exam: Present: dry, intact - Patient Status Disposition: Home, Self-Care Condition: Good Functional capacity at discharge: uses cane/walker Overall status at discharge: patient is back to baseline - Discharge Instructions Instructions: Citalopram (By mouth), Anxiety (DC) Follow Up With: Matt Martinez MD [Primary Care Provider] - 11/02/17 1:45 pm (This appointment will be with Keily Johnson CNP.) Porfirio Sethi MD [Partnered Physician] - 11/23/17 10:30 am - Diet and Activity Activity: increase activity as tolerated Diet: diabetic diet, low fat, low cholesterol
== END 2017-10-27 13:36 | disposition home or self-care (01) ==
LOC: EMEROO 20:31 → 3BNU 20:31
PROVIDERS: ADMIT Internal Medicine; ATTEND Registered Nurse

== ENCOUNTER 2018-03-18 23:45 | Inpatient (IN) ==
[2018-03-19] MEDS ORDERED: 0.9 % Sodium Chloride 1,000 ML IVC ONE ×2 (00:05→06:21)
--- NOTE | 2018-03-19 00:05 | Emergency Department Note ---
Disposition Clinical Impression: Acute kidney injury, Hyperglycemia Community acquired pneumonia Qualifiers: Laterality: unspecified laterality Qualified Code(s): J18.9 - Pneumonia, unspecified organism Disposition: Admitted As Inpatient Condition: Good Weakness HPI - General Chief complaint: ED Weakness Stated complaint: weakness, low BG Time Seen by Provider: 03/18/18 23:50 Source: patient Mode of arrival: private vehicle Limitations: no limitations Nursing Notes Reviewed: Yes Vital Signs Reviewed: Yes - History of Present Illness HPI Narrative: 62-year-old male history of diabetes, atrial fibrillation with pacemaker placement who presents to the ER due to concern for low blood sugar. Patient states this morning he broke out in chills and felt weak. He thought that his sugar was low although he did not check it. Denies any recent changes in his medications. He states he felt fine yesterday. States throughout the day that has had a cough and just not felt well in general. No fevers. No nausea vomiting or diarrhea. No recent antibiotic use or hospitalization. No other complaints. Pt Subjective Complaint: generalized weakness/fatigue Onset (ago): hour(s) Duration: constant Location: generalized Migration: none Pain Severity: none Pain Scale: 7 Improves with: none Worsens with: none Associated symptoms: Reports: fever/chills. Denies: chest pain, nausea/vomiting , shortness of breath - Related Data Home Medications Medication Instructions Recorded Confirmed Cholecalciferol (D-3) [Vitamin D] 2,000 unit PO DAILY 08/17/16 03/19/18 Cyanocobalamin (Vitamin B-12) 2,500 mcg PO DAILY 08/17/16 03/19/18 [Vitamin B12] Dabigatran [Pradaxa] 150 mg PO BID 08/17/16 03/19/18 Insulin Glargine,Hum.rec.anlog 48 units SQ QAM 08/17/16 03/19/18 [Lantus Solostar] Levothyroxine [Levothyroxine 137 mcg PO Q48H 08/17/16 03/19/18 Sodium] Mv-Mn/FA/Vit K/Lycop/Lut/Coq10 1 cap PO DAILY 08/17/16 03/19/18 [Daily Multivitamin Capsule] Omeprazole 20 mg PO BID 08/17/16 03/19/18 Vit C/E/Zn/Coppr/Lutein/Zeaxan 2 cap PO BID 08/17/16 03/19/18 [Preservision Areds 2 Softgel] Insulin ASPART [Novolog Flexpen] 14 unit SQ BID 12/14/16 03/19/18 Allergies Allergy/AdvReac Type Severity Reaction Status Date / Time azithromycin AdvReac Headache Verified 03/18/18 23:50 [From Zithromax Z-Jp] cefdinir AdvReac Anxiety Verified 03/18/18 23:50 moxifloxacin [From Avelox] AdvReac Gastrointestinal Verified 03/18/18 23:50 Upset Saccharomyces boulardii AdvReac Anxiety Verified 03/18/18 23:50 [From Florastor] Phzrany-Epk-Ezp Reductase AdvReac Muscle Pain Verified 03/18/18 23:50 Inhibitor [Statins] All systems ED: reviewed and negative except as stated. Constitutional: Reports: chills, weakness. Denies: fever Cardiovascular: Denies: chest pain Respiratory: Reports: cough. Denies: dyspnea Gastrointestinal: Denies: nausea, vomiting, diarrhea Past Medical History - Past Medical History Attestation: Yes The following information was validated with the patient. Source: patient Medical history: Reports: diabetes Surgical history: Reports: appendectomy, cholecystectomy, pacemaker/AICD, thyroidectomy, other Psychiatric history: Reports: no psych history - Social History Smoking Status: Never smoker Smokeless Tobacco Status: No Alcohol use: Reports: none Drug use: Reports: none Physical Exam - General Limitations: no limitations General appearance: alert, in no apparent distress - Head Head exam: atraumatic, normocephalic - Eye Eye exam: Present: normal appearance - ENT ENT exam: normal exam - Neck Neck exam: Present: normal inspection, full ROM - Chest Chest inspection: Present: normal inspection, symmetric chest wall rise - Respiratory Respiratory exam: Present: other (Diminished breath sounds bilaterally) - Cardiovascular Cardiovascular exam: Present: regular rate, normal rhythm, normal heart sounds - Abdominal Exam Abdominal exam: Present: soft, Non-Tender. Absent: tenderness, distention, guarding, rigidity - Extremities Exam Extremities exam: Present: normal inspection, full ROM - Expanded Upper Extremity Exam Shoulder exam: Present: normal inspection, full ROM Arm exam: Present: normal inspection, full ROM Elbow exam: Present: normal inspection, full ROM Forearm/Wrist exam: Present: normal inspection, full ROM Hand exam: Present: normal inspection, full ROM - Expanded Lower Extremity Exam Hip/Pelvis exam: Present: normal inspection, full ROM Upper leg exam: Present: normal inspection, full ROM Knee exam: Present: normal inspection, full ROM Lower leg exam: Present: normal inspection, full ROM Ankle exam: Present: normal inspection, full ROM Foot/toe exam: Present: normal inspection, full ROM - Skin Skin exam: Present: warm, dry Course Course Narrative: Patient seen and examined. Vital signs reviewed. Plan for EKG, chest x-ray as well as labs including lactic acid and blood cultures. - Reevaluation(s) Reevaluation #1: Discussed findings with patient. Agreeable with plan. We will start Levaquin for clinically suspected pneumonia. Vital Signs Temperature 99.9 F H 03/18/18 23:45 Pulse Rate 72 03/18/18 23:45 Respiratory Rate 20 03/18/18 23:45 Blood Pressure 115/65 03/18/18 23:45 O2 Sat by Pulse Oximetry 92 03/18/18 23:45 Temperature 99.9 F H 03/18/18 23:45 Pulse Rate 69 03/19/18 01:56 Respiratory Rate 20 03/19/18 01:56 Blood Pressure 108/51 03/19/18 01:56 O2 Sat by Pulse Oximetry 95 03/19/18 01:56 Oxygen Delivery Oxygen Delivery Nasal Cannula Weakness - MDM Narrative Medical decision making narrative: 62-year-old male with chills, sweats and cough starting today. He has a low- grade temp here with oxygen saturations in the low 90s. Patient has a leukocytosis as well as a mild acute kidney injury. Chest x-ray is a poor inspiratory film without evidence of a focal consolidation however gestalt and clinical suspicion is high for pneumonia. Patient given IV fluids and Levaquin and admitted to the hospitalist service. - Lab Data Lab results reviewed: Yes I reviewed the patient's lab results. Result diagrams: 03/19/18 00:05 03/19/18 00:05 Lab Results 03/19/18 03/19/18 03/19/18 Range/Units 00:00 00:05 00:05 WBC 23.1 H (4.3-11.1) K/mcL RBC 4.42 (4.19-5.50) M/mcL Hgb 12.0 L (12.9-16.9) g/dL Hct 38.0 (37.5-50.1) % MCV 86.0 (83.0-100.0) fL MCH 27.1 L (28.0-33.3) pg MCHC 31.6 (31.6-35.5) g/dL RDW 13.8 (11.5-14.5) % Plt Count 204 (140-400) K/mcL MPV 11.4 (9.4-12.4) fL Immature Gran % 0.6 (0-4) % Seg Neutrophils % 90.1 % Lymphocytes % 4.1 % Monocytes % 5.1 % Eosinophils % 0.0 % Basophils % 0.1 % Neutrophils # 20.8 H (1.6-8.9) K/mcL Lymphocytes # 1.0 (0.6-4.6) K/mcL Monocytes # 1.2 (0.0-1.3) K/mcL Eosinophils # 0.0 (0.0-0.6) K/mcL Basophils # 0.0 (0.0-0.2) K/mcL Sodium 129 L (136-145) mEq/L Potassium 4.7 (3.5-5.1) mEq/L Chloride 95 L (98-107) mEq/L Carbon Dioxide 25 (23-29) mEq/L BUN 27 H (8-23) mg/dL Creatinine 1.42 H (0.70-1.30) mg/dL Est GFR ( Amer) > 60 (> 60) Est GFR (Non-Af Amer) 50 L (> 60) BUN/Creatinine Ratio 19 (6-26) Glucose 256 H (70-105) mg/dL POC Glucose 245 H (70-99) mg/dL Calculated Osmolality 282 (280-300) Lactic Acid (0.5-2.2) mmol/L Calcium 9.2 (8.6-10.3) mg/dL Total Bilirubin 1.5 H (0.3-1.0) mg/dL AST 23 (13-39) Units/L ALT 21 (7-52) Units/L Alkaline Phosphatase 102 (34-104) Units/L Troponin I 0.03 (< 0.04) ng/mL Serum Total Protein 7.7 (6.4-8.9) g/dL Albumin 3.8 (3.5-5.7) g/dL Globulin 3.9 H (2.4-3.5) g/dL Albumin/Globulin Ratio 1.0 L (1.1-2.2) Urine Color (Yellow) Urine Clarity (Clear) Urine pH (5.0-8.0) pH Units Ur Specific [place] (1.010-1.025) Urine Protein (Neg-Trace) mg/dL Urine Glucose (UA) (Normal) mg/dL Urine Ketones (Negative) mg/dL Urine Blood (Negative) Urine Nitrite (Negative) Urine Bilirubin (Negative) Urine Urobilinogen (Normal) mg/dL Ur Leukocyte Esterase (Negative) Urine Microscopic RBC (0-3) per hpf Urine Microscopic WBC (0-3) per hpf Ur Squamous Epith Cells (None-Few) per lpf Urine Bacteria (None-Few) per hpf Hyaline Casts (None-Few) per lpf Urine Mucus (Few) Urine Yeast (None Seen) per hpf Ur Culture Indicated? (NO) 03/19/18 03/19/18 Range/Units 00:05 00:42 WBC (4.3-11.1) K/mcL RBC (4.19-5.50) M/mcL Hgb (12.9-16.9) g/dL Hct (37.5-50.1) % MCV (83.0-100.0) fL MCH (28.0-33.3) pg MCHC (31.6-35.5) g/dL RDW (11.5-14.5) % Plt Count (140-400) K/mcL MPV (9.4-12.4) fL Immature Gran % (0-4) % Seg Neutrophils % % Lymphocytes % % Monocytes % % Eosinophils % % Basophils % % Neutrophils # (1.6-8.9) K/mcL Lymphocytes # (0.6-4.6) K/mcL Monocytes # (0.0-1.3) K/mcL Eosinophils # (0.0-0.6) K/mcL Basophils # (0.0-0.2) K/mcL Sodium (136-145) mEq/L Potassium (3.5-5.1) mEq/L Chloride (98-107) mEq/L Carbon Dioxide (23-29) mEq/L BUN (8-23) mg/dL Creatinine (0.70-1.30) mg/dL Est GFR ( Amer) (> 60) Est GFR (Non-Af Amer) (> 60) BUN/Creatinine Ratio (6-26) Glucose (70-105) mg/dL POC Glucose (70-99) mg/dL Calculated Osmolality (280-300) Lactic Acid 1.8 (0.5-2.2) mmol/L Calcium (8.6-10.3) mg/dL Total Bilirubin (0.3-1.0) mg/dL AST (13-39) Units/L ALT (7-52) Units/L Alkaline Phosphatase (34-104) Units/L Troponin I (< 0.04) ng/mL Serum Total Protein (6.4-8.9) g/dL Albumin (3.5-5.7) g/dL Globulin (2.4-3.5) g/dL Albumin/Globulin Ratio (1.1-2.2) Urine Color Dark Yellow (Yellow) Urine Clarity Cloudy A (Clear) Urine pH 5.5 (5.0-8.0) pH Units Ur Specific [place] 1.029 H (1.010-1.025) Urine Protein 30 H (Neg-Trace) mg/dL Urine Glucose (UA) Normal (Normal) mg/dL Urine Ketones Trace H (Negative) mg/dL Urine Blood Small H (Negative) Urine Nitrite Negative (Negative) Urine Bilirubin Negative (Negative) Urine Urobilinogen Normal (Normal) mg/dL Ur Leukocyte Esterase Small H (Negative) Urine Microscopic RBC 5-15 H (0-3) per hpf Urine Microscopic WBC 5-15 H (0-3) per hpf Ur Squamous Epith Cells Many H (None-Few) per lpf Urine Bacteria Few (None-Few) per hpf Hyaline Casts None Seen (None-Few) per lpf Urine Mucus Few (Few) Urine Yeast Moderate H (None Seen) per hpf Ur Culture Indicated? NO. A (NO) - Radiology Data Radiology results reviewed: Yes I reviewed the patient's radiology results. Chest X-Ray 03/19/18 00:05 IMPRESSION: Limited but grossly negative portable chest. PA and lateral radiographs may provide additional diagnostic information. D/ / Jose López MD / Jose López MD Interpreting Provider: Jose López MD - EKG Data EKG attestation: Yes I reviewed and interpreted this EKG. EKG results narrative: EKG demonstrates a ventricularly paced rhythm rate [address] elevations or depressions. Carlos Eduardo - Carlos Eduardo Situation: Demographics, MOA Background: Presenting Complaint, Relevant PMH, Meds, & Allergies Assessment: Vital Signs, Course and respsone to treatment, Exam Concerns, Patient/Family Expectation, Pertinant Lab Results Recommendation: Barrier(s) to disposition, Recommendation based on pending studies, treatments, or consults SShirley Report Given to: Dr. Alyssia Thibodeaux Repor Time: 02:33 Attestation Statement - Attestation Attestation: I examined this patient and my medical decision-making was reviewed with the Resident Physician. I agree with the documented findings, disposition and treatment plan as described except to the extent set forth below. Findings consistent with acute kidney injury, possible early pneumonia, systemic inflammatory response syndrome with leukocytosis and cough. Suspect developing pneumonia, start Levaquin, blood cultures sent, patient given IV fluid and now stable with improved symptoms as well as hypoxia. Patient be admitted for further management of pneumonia.
[2018-03-19 00:34] LABS: Basophils % 0.1 %; Immature Granulocytes % 0.6 % (0-4); Lymphocytes % 4.1 %; Mean Corpuscular HGB Conc 31.6 g/dL (31.6-35.5); Mean Corpuscular Hemoglobin 27.1 pg (28.0-33.3); Mean Platelet Volume 11.4 fL (9.4-12.4); Monocytes # 1.2 K/mcL (0.0-1.3); Monocytes % 5.1 %; Neutrophils # 20.8 K/mcL (1.6-8.9); Platelet Count 204 K/mcL (140-400); Red Blood Count 4.42 M/mcL (4.19-5.50); Red Cell Distribution Width 13.8 % (11.5-14.5); Segmented Neutrophils % 90.1 %
[2018-03-19 00:41] LABS: Alanine Aminotransferase 21 Units/L (7-52); Albumin 3.8 g/dL (3.5-5.7); Alkaline Phosphatase 102 Units/L (34-104); Aspartate Amino Transferase 23 Units/L (13-39); BUN/Creatinine Ratio 19 (6-26); Bilirubin,Total 1.5 mg/dL (0.3-1.0); Blood Urea Nitrogen 27 mg/dL (8-23); Calcium 9.2 mg/dL (8.6-10.3); Carbon Dioxide 25 mEq/L (23-29); Chloride 95 mEq/L (98-107); Globulin 3.9 g/dL (2.4-3.5); Glucose 256 mg/dL (70-105); Osmolality,Calculated 282 (280-300); Potassium 4.7 mEq/L (3.5-5.1); Sodium 129 mEq/L (136-145); Total Protein 7.7 g/dL (6.4-8.9); Troponin I 0.03 ng/mL (< 0.04); eGFR For African Americans > 60 (> 60); eGFR For Non-African Americans 50 (> 60)
[2018-03-19 00:52] LABS: Bilirubin,Urine Negative (Negative); Blood,Urine Small (Negative); Clarity,Urine Cloudy (Clear); Color,Urine Dark Yellow (Yellow); Glucose,Urine (UA) Normal (Normal); Ketones,Urine Trace mg/dL (Negative); Leukocyte Esterase,Urine Small (Negative); Nitrite,Urine Negative (Negative); PH,Urine 5.5 pH Units (5.0-8.0); Protein,Urine 30 mg/dL (Neg-Trace); Specific Gravity,Urine 1.029 (1.010-1.025); Urobilinogen,Urine Normal (Normal)
[2018-03-19 00:53] LABS: Hyaline Casts,Urine None Seen per lpf (None-Few); Squamous Epithelial Cell,Urine Many per lpf (None-Few)
[2018-03-19 01:03] LABS: Bacteria,Urine Few per hpf (None-Few); Mucus,Urine Few (Few); Yeast,Urine Moderate per hpf (None Seen)
[2018-03-19] MEDS ORDERED: Levofloxacin 750 MG/150 ML 750 MG/150 ML BAG IVPB ONE (01:54)
[2018-03-19] MEDS ORDERED: Naloxone 0.4 MG/ML INJ IVP PRN (06:08)
[2018-03-19] MEDS ORDERED: D5% in Water 1,000 ML IVC PRN (06:23)
[2018-03-19] MEDS ORDERED: *HR* Dextrose 50 % in Water (Syg) 50 ML SYRINGE IVP PRN (06:23)
[2018-03-19] MEDS ORDERED: Dextrose Gel 15 GM/37.5 ML TUBE PO PRN ×2 (06:23)
--- NOTE | 2018-03-19 06:30 | Internal Med History&Physical ---
Date of Encounter: 03/19/18 Time of Encounter: 04:00 Internal Medicine - H&P: HPI Chief complaint: Possible pneumonia Admitted From: Home Plans for Post Hospital Care: Home History of present illness: Mr. Pike is a 62 year old male Patient states that he was at [employer] helping with a truckload of bread. He started to feel a little weak and he thought his sugars were low, so he went home to check his blood sugar. Along the way he began to shake and have shortness of breath as well. He checked his blood sugar at home and it was 200. This weakness and shakes lasted all day and progressed to chills. At that point he decided to come to the emergency room to be checked out. In the emergency room repeat blood sugar showed 256, lactic acid of 1.8, troponin less than 0.03, but his white count was 23.1. He was afebrile at 98 degrees and saturating 97% on 2 L nasal cannula. Chest x-ray was limited but appeared grossly negative, and a recommendation by the radiologist for a PA and lateral view was made but not completed in the ER. He is noted have decreased breath sounds and crackles bilaterally. He has had a cough as well for the last week or so. Patient's presentation suspicious for pneumonia, he was admitted for further workup and management. Currently patient is feeling a little better still mildly short of breath. Past Med Surg Social Fam HX - Past Medical History Medical history: diabetes Additional medical history: perferated ulcer, pacer, defibrillator, home o2, ESAU , obesity, RA, irreg HR, stomach ulcer, hypothyroid Psychiatric history: no psych history - Past Surgical History Surgical History: appendectomy, cholecystectomy, pacemaker/AICD, thyroidectomy, other Additional surgical history: umbillical hernia repair,. gastric bypass,. cardiac ablation,. perforated ulcer - Social History Smoking Status: Never smoker Smokeless Tobacco Status: No Alcohol use: none Drug use: none - Family History Mother Living Status: Hx Family Cancer: Yes Father Living Status: Hx Family Cardiac Disorders: Yes Internal Medicine - H&P: Meds Cholecalciferol (D-3) [Vitamin D] 2,000 unit PO DAILY 08/17/16 [History] Cyanocobalamin (Vitamin B-12) [Vitamin B12] 2,500 mcg PO DAILY 08/17/16 [History ] Dabigatran [Pradaxa] 150 mg PO BID 08/17/16 [History] Insulin Glargine,Hum.rec.anlog [Lantus Solostar] 48 units SQ QAM 08/17/16 [ History] Levothyroxine [Levothyroxine Sodium] 137 mcg PO Q48H 08/17/16 [History] Mv-Mn/FA/Vit K/Lycop/Lut/Coq10 [Daily Multivitamin Capsule] 1 cap PO DAILY 08/17 [History] Omeprazole 20 mg PO BID 08/17/16 [History] Vit C/E/Zn/Coppr/Lutein/Zeaxan [Preservision Areds 2 Softgel] 2 cap PO BID 08/17 [History] Insulin ASPART [Novolog Flexpen] 14 unit SQ BID 12/14/16 [History] 3 Allergy/AdvReac Type Severity Reaction Status Date / Time azithromycin AdvReac Headache Verified 03/18/18 23:50 [From Zithromax Z-Jp] cefdinir AdvReac Anxiety Verified 03/18/18 23:50 moxifloxacin [From Avelox] AdvReac Gastrointestinal Verified 03/18/18 23:50 Upset Saccharomyces boulardii AdvReac Anxiety Verified 03/18/18 23:50 [From Florastor] Iapgobj-Rjx-Ugv Reductase AdvReac Muscle Pain Verified 03/18/18 23:50 Inhibitor [Statins] All Systems PM: A 10-system review of systems was performed and is negative for pertinent findings except as documented above in the HPI. 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 Absent: tenderness - Respiratory Respiratory exam: Present: decreased breath sounds, rales. Absent: accessory muscle use, chest wall tenderness, respiratory distress, wheezes - Cardiovascular Cardiovascular exam: Present: RRR. Absent: systolic murmur - GI/Abdominal GI/Abdominal exam: Present: normal bowel sounds. Absent: guarding, tenderness - Extremities Exam Extremities exam: Present: warm, radial pulses palpable and symmetrical. Absent : pedal edema, tenderness - Neurological Exam Neurological exam: Present: no focal deficits, strengths equal and symetr throughout. Absent: facial droop, speech deficit - Skin Skin exam: Present: dry, normal color, warm Additional comments: Multiple areas of bruising, secondary to agent being on pradaxa Internal Med - H&P Results - Labs CBC & Chem 7: 03/19/18 00:05 03/19/18 00:05 - Assessment and plan (1) Community acquired pneumonia Current Visit: Yes Status: Acute Assessment and plan: Symptoms and exam suspicious for pneumonia, patient also has elevated white count. Vital signs within normal limits, patient does not meet sepsis criteria. 2 view chest x-ray today Follow up blood cultures Continue levaquin Continue to monitor. Qualifiers: Laterality: unspecified laterality Qualified Code(s): J18.9 - Pneumonia, unspecified organism (2) Leukocytosis Current Visit: Yes Status: Acute Assessment and plan: Likely secondary to pneumonia. Continue to monitor Treatment of pneumonia as above. Qualifiers: Qualified Code(s): D72.829 - Elevated white blood cell count, unspecified (3) Shortness of breath Current Visit: No Status: Acute Assessment and plan: Improved with 2L of oxygen. Likely related to Pneumonia, patient on pradaxa so doubt clot. Continue to monitor. (4) Diabetes Current Visit: No Status: Chronic Assessment and plan: Patient on insulin at home. Basal insulin at night Check sugars ACHS Insulin sliding scale. Qualifiers: Diabetes mellitus type: type 2 Diabetes mellitus alf insulin use: without supervisor paper machine use Diabetes mellitus complication status: without complication Qualified Code(s): E11.9 - Type 2 diabetes mellitus without complications (5) Atrial fibrillation Current Visit: No Status: Chronic Assessment and plan: Controlled, continue pradaxa. Qualifiers: Atrial fibrillation type: permanent Qualified Code(s): I48.2 - Chronic atrial fibrillation (6) Acute kidney injury Current Visit: Yes Status: Acute Assessment and plan: Patient's baseline creatinine is around 1.0, currently 1.42. Continue fluid boluses. Continue to monitor. (7) Possible urinary tract infection Current Visit: Yes Status: Acute Assessment and plan: Patient's UA from the ER showed small LEs, moderate yeast, small blood and 30 urine protein. Likely related to ABDI, but patient also states that he has had several UTIs in the past. Sample from ER can not be cultured and is not available, so we will have to repeat it and order urine culture. Follow up results of urine culture. If yeast present in second sample, consider treating for yeast infection. - Time Spent With Patient Total time spent is greater than 50% in coordination of care (as documented) at patient's floor/unit and/or counseling patient: Greater than 35 minutes
[2018-03-19] MEDS: *HR* Dabigatran 150 MG CAPSULE PO SCH ×2 (09:22→20:26)
[2018-03-19] MEDS: Insulin DETEMIR 100 UNIT/ML X5UNITS SQ SCH (09:23)
[2018-03-19] MEDS: Insulin LISPRO 300 UNITS/3 ML VIAL SQ SCH ×4 (09:23→20:21)
--- NOTE | 2018-03-19 11:28 | Event Note ---
Date of Encounter: 03/19/18 Time of Encounter: 10:15 Patient complaining of pain in his right lower extremity in the popliteal region and posterior lower thigh. And get venous Doppler. Continue current antibiotics. Follow culture results.
[2018-03-19] MEDS: Lactobacillus 1 EACH CAP.SPRINK PO SCH ×2 (11:53→20:26)
--- NOTE | 2018-03-19 18:14 | Electrocardiograph Report ---
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
[2018-03-20] MEDS: Levofloxacin 750 MG/150 ML 750 MG/150 ML BAG IVPB SCH (03:47)
[2018-03-20] MEDS ORDERED: Acetaminophen 325 MG TABLET PO PRN (06:27)
[2018-03-20 06:30] LABS: Basophils % 0.1 %; Eosinophils % 0.4 %; Hematocrit 37.1 % (37.5-50.1); Hemoglobin 11.5 g/dL (12.9-16.9); Immature Granulocytes % 0.4 % (0-4); Lymphocytes # 1.6 K/mcL (0.6-4.6); Lymphocytes % 15.1 %; Mean Corpuscular Hemoglobin 26.9 pg (28.0-33.3); Mean Corpuscular Volume 86.9 fL (83.0-100.0); Mean Platelet Volume 11.3 fL (9.4-12.4); Monocytes # 0.9 K/mcL (0.0-1.3); Monocytes % 8.6 %; Neutrophils # 7.9 K/mcL (1.6-8.9); Platelet Count 161 K/mcL (140-400); Red Blood Count 4.27 M/mcL (4.19-5.50); Segmented Neutrophils % 75.4 %
[2018-03-20 06:53] LABS: BUN/Creatinine Ratio 19 (6-26); Blood Urea Nitrogen 22 mg/dL (8-23); Calcium 8.9 mg/dL (8.6-10.3); Carbon Dioxide 26 mEq/L (23-29); Chloride 102 mEq/L (98-107); Glucose 121 mg/dL (70-105); Osmolality,Calculated 281 (280-300); Potassium 4.2 mEq/L (3.5-5.1); Sodium 133 mEq/L (136-145); eGFR For African Americans > 60 (> 60); eGFR For Non-African Americans > 60 (> 60)
[2018-03-20] MEDS: Insulin LISPRO 300 UNITS/3 ML VIAL SQ SCH ×4 (07:55→20:27)
[2018-03-20] MEDS: *HR* Dabigatran 150 MG CAPSULE PO SCH ×2 (07:58→20:27)
[2018-03-20] MEDS: Insulin DETEMIR 100 UNIT/ML X5UNITS SQ SCH (07:58)
[2018-03-20] MEDS: Lactobacillus 1 EACH CAP.SPRINK PO SCH ×2 (07:59→20:27)
[2018-03-20] MEDS: Doxycycline 100 MG in 0.9 % Sodium Chloride Mini Bag 100 ML IVPB SCH ×2 (11:53→19:01)
--- NOTE | 2018-03-20 15:16 | Internal Med Progress Note ---
Date of Encounter: 03/20/18 Time of Encounter: 10:20 - Assessment and plan (1) Cellulitis of lower leg Current Visit: Yes Status: Acute Assessment and plan: Developing cellulitis of right lower leg. Will add doxycycline. Keep right leg elevated (2) Community acquired pneumonia Current Visit: Yes Status: Ruled-out Assessment and plan: Repeat chest x-ray done yesterday does not show any infiltrate. Blood cultures have been negative. Patient not having any fever or cough at this time. Do not suspect pneumonia at this time. Qualifiers: Laterality: unspecified laterality Qualified Code(s): J18.9 - Pneumonia, unspecified organism (3) Possible urinary tract infection Current Visit: Yes Status: Acute Assessment and plan: Urine culture shows no growth. (4) Atrial fibrillation Current Visit: Yes Status: Chronic Assessment and plan: Rate controlled. On anticoagulation with pradaxa. Qualifiers: Atrial fibrillation type: permanent Qualified Code(s): I48.2 - Chronic atrial fibrillation (5) Diabetes Current Visit: Yes Status: Chronic Assessment and plan: On sliding scale insulin. Continue to monitor blood sugars. Continue current sliding scale coverage. Diabetic diet. Qualifiers: Diabetes mellitus type: type 2 Diabetes mellitus nursing home insulin use: without nursing home use Diabetes mellitus complication status: without complication Qualified Code(s): E11.9 - Type 2 diabetes mellitus without complications - Time Spent With Patient Total time spent is greater than 50% in coordination of care (as documented) at patient's floor/unit and/or counseling patient: - Subjective Interval history: Patient is awake and alert. Complains of erythema and swelling over his right forrest. Shortness of breath is improving. Still having diarrhea when he raises antibiotic but it improves after that. No chest pain or palpitations. No fever or chills reported overnight - Constitutional Vitals: Temp Pulse Resp BP Pulse Ox 97.7 F 72 18 123/78 99 03/20/18 11:12 03/20/18 11:12 03/20/18 11:12 03/20/18 11:12 03/20/18 11:12 General appearance: Present: mild distress, A&O X 3, pleasant, answers questions appropriately - Neck Neck exam general surgery: Present: supple, trachea midline. Absent: lymphadenopathy - Respiratory Respiratory exam: Present: decreased breath sounds (at both bases). Absent: accessory muscle use, rales, rhonchi, wheezes - Cardiovascular Cardiovascular exam: Present: RRR, +S1, +S2. Absent: diastolic murmur, gallop, rubs, systolic murmur - GI/Abdominal GI/Abdominal exam: Present: normal bowel sounds, soft, no peritoneal signs. Absent: distended, tenderness - Extremities Exam Extremities exam: Present: warm, radial pulses palpable and symmetrical. Absent : calf tenderness, cyanotic, pedal edema Additional comments: Mild erythema over the anterior surface of the right lower leg. Warm to touch compared to the left. Internal Medicine: Result - Labs CBC & Chem 7: 03/20/18 06:06 03/20/18 06:06 Labs: Short CBC 03/20/18 Range/Units 06:06 WBC 10.5 D (4.3-11.1) K/mcL Hgb 11.5 L (12.9-16.9) g/dL Hct 37.1 L (37.5-50.1) % Plt Count 161 (140-400) K/mcL Neutrophils # 7.9 (1.6-8.9) K/mcL BMP 03/20/18 06:06 Sodium 133 L Potassium 4.2 Chloride 102 Carbon Dioxide 26 BUN 22 Creatinine 1.15 Glucose 121 H Calcium 8.9 Consult Discharge Plan - Plan Referrals: Matt Martinez MD [Primary Care Provider] -
[2018-03-21] MEDS: Levofloxacin 750 MG/150 ML 750 MG/150 ML BAG IVPB SCH (03:44)
[2018-03-21] MEDS: Doxycycline 100 MG in 0.9 % Sodium Chloride Mini Bag 100 ML IVPB SCH (05:46)
[2018-03-21 07:34] LABS: Basophils % 0.3 %; Eosinophils # 0.1 K/mcL (0.0-0.6); Eosinophils % 1.7 %; Hemoglobin 10.8 g/dL (12.9-16.9); Immature Granulocytes % 0.3 % (0-4); Lymphocytes # 1.9 K/mcL (0.6-4.6); Lymphocytes % 26.4 %; Mean Corpuscular HGB Conc 30.9 g/dL (31.6-35.5); Mean Corpuscular Hemoglobin 26.8 pg (28.0-33.3); Mean Corpuscular Volume 86.8 fL (83.0-100.0); Mean Platelet Volume 11.9 fL (9.4-12.4); Monocytes # 0.7 K/mcL (0.0-1.3); Monocytes % 9.4 %; Neutrophils # 4.5 K/mcL (1.6-8.9); Platelet Count 152 K/mcL (140-400); Red Blood Count 4.03 M/mcL (4.19-5.50); Red Cell Distribution Width 13.9 % (11.5-14.5); Segmented Neutrophils % 61.9 %
[2018-03-21 07:51] LABS: BUN/Creatinine Ratio 21 (6-26); Blood Urea Nitrogen 20 mg/dL (8-23); Calcium 8.6 mg/dL (8.6-10.3); Carbon Dioxide 25 mEq/L (23-29); Chloride 104 mEq/L (98-107); Glucose 143 mg/dL (70-105); Osmolality,Calculated 289 (280-300); Potassium 3.9 mEq/L (3.5-5.1); Sodium 137 mEq/L (136-145); eGFR For African Americans > 60 (> 60); eGFR For Non-African Americans > 60 (> 60)
[2018-03-21] MEDS: Insulin LISPRO 300 UNITS/3 ML VIAL SQ SCH ×2 (07:57→12:10)
[2018-03-21] MEDS: Lactobacillus 1 EACH CAP.SPRINK PO SCH (07:57)
[2018-03-21] MEDS: *HR* Dabigatran 150 MG CAPSULE PO SCH (07:57)
[2018-03-21] MEDS: Insulin DETEMIR 100 UNIT/ML X5UNITS SQ SCH (09:31)
[2018-03-21 11:02] VITALS: BP 110/70
--- NOTE | 2018-03-21 12:48 | Discharge Summary ---
- NOTES TO OUTPATIENT PROVIDER Notes to Outpatient Provider: Patient hospitalized here initially with community -acquired pneumonia and started on IV antibiotics. Repeat chest x-ray did not show any infiltrate. However he began to develop erythema and swelling in his right lower extremity. Negative for venous thrombosis. Diagnosed with cellulitis and treated with appropriate antibiotics. Improving. Now stable to be discharged back home on oral antibiotics. Date of Encounter: 03/21/18 Time of Encounter: 12:46 - Discharge Diagnosis (1) Cellulitis of lower leg Priority: Primary Status: Acute (2) Community acquired pneumonia Priority: Secondary Status: Ruled-out Qualifiers: Laterality: unspecified laterality Qualified Code(s): J18.9 - Pneumonia, unspecified organism (3) Possible urinary tract infection Priority: Secondary Status: Ruled-out (4) Atrial fibrillation Priority: Secondary Status: Chronic Qualifiers: Atrial fibrillation type: chronic Qualified Code(s): I48.2 - Chronic atrial fibrillation (5) Diabetes Priority: Secondary Status: Chronic Qualifiers: Diabetes mellitus type: type 2 Diabetes mellitus rn long term care insulin use: without rn long term care use Diabetes mellitus complication status: without complication Qualified Code(s): E11.9 - Type 2 diabetes mellitus without complications Hospital course: Mr. Pike is a 62 year old male Patient with history of rheumatoid arthritis, atrial fibrillation, obstructive sleep apnea hospitalized here initially with suspected community-acquired pneumonia, dehydration and started on IV antibiotics and IV fluids. Repeat chest x-ray did not show any infiltrate. However he began to develop erythema and swelling in his right lower extremity. Negative for venous thrombosis. Most likely has cellulitis in his right lower extremity. He is now being treated with antibiotics targeting cellulitis. In their has been improvement in erythema overnight. At this time is doing much better and is clinically stable for discharge. His WBC count has normalized. Blood cultures and urine cultures have been negative. He will be discharged home on antibiotics and will follow up with his primary care provider for further management. Discharge discussed with: patient, nurse - Time Spent with Patient Total time spent providing and/or coordinating discharge services: Greater than 30 minutes (32 min) - Discharge Medications Prescriptions: Amoxicillin/Clavulanate [Augmentin] 875 mg PO BIDWM #14 tablet Lactobacillus [Culturelle] 1 each PO BID #20 cap.sprink Home Medications: Cholecalciferol (D-3) [Vitamin D] 2,000 unit PO DAILY 08/17/16 [History] Cyanocobalamin (Vitamin B-12) [Vitamin B12] 2,500 mcg PO DAILY 08/17/16 [History ] Dabigatran [Pradaxa] 150 mg PO BID 08/17/16 [History] Insulin Glargine,Hum.rec.anlog [Lantus Solostar] 48 units SQ QAM 08/17/16 [ History] Levothyroxine [Levothyroxine Sodium] 137 mcg PO SUTUWETHFRSA@0630 08/17/16 [ History] Mv-Mn/FA/Vit K/Lycop/Lut/Coq10 [Daily Multivitamin Capsule] 1 cap PO DAILY 08/17 [History] Omeprazole 20 mg PO BID 08/17/16 [History] Vit C/E/Zn/Coppr/Lutein/Zeaxan [Preservision Areds 2 Softgel] 2 cap PO BID 08/17 [History] Insulin ASPART [Novolog Flexpen] 16 - 18 unit SQ BID 12/14/16 [History] Levothyroxine [Synthroid] 150 mcg PO MO@0630 03/19/18 [History] Amoxicillin/Clavulanate [Augmentin] 875 mg PO BIDWM #14 tablet 03/21/18 [Rx] Lactobacillus [Culturelle] 1 each PO BID #20 cap.sprink 03/21/18 [Rx] Allergies/Adverse Reactions: 3 Allergy/AdvReac Type Severity Reaction Status Date / Time azithromycin AdvReac Headache Verified 03/18/18 23:50 [From Zithromax Z-Jp] cefdinir AdvReac Anxiety Verified 03/18/18 23:50 moxifloxacin [From Avelox] AdvReac Gastrointestinal Verified 03/18/18 23:50 Upset Saccharomyces boulardii AdvReac Anxiety Verified 03/18/18 23:50 [From Florastor] Uevglxr-Qfy-Rkv Reductase AdvReac Muscle Pain Verified 03/18/18 23:50 Inhibitor [Statins] Date of admission: 03/19/18 15:10 Primary care physician: Matt Martinez MD Discharging clinician: Steve Roger Anticipated date of discharge: 03/21/18 - Constitutional Vitals: Temp Pulse Resp BP Pulse Ox 98.1 F 71 19 110/70 96 07/15/18 11:00 03/21/18 11:00 03/21/18 11:00 03/21/18 11:00 03/21/18 11:00 General appearance: Present: cooperative, A&O X 3, pleasant, answers questions appropriately - Respiratory Respiratory exam: Present: CTAB. Absent: accessory muscle use, rales, rhonchi, wheezes - Cardiovascular Cardiovascular exam: Present: RRR, +S1, +S2. Absent: diastolic murmur, gallop, rubs, systolic murmur - GI/Abdominal GI/Abdominal exam: Present: normal bowel sounds, soft, no peritoneal signs. Absent: distended, tenderness - Extremities Exam Extremities exam: Present: warm, radial pulses palpable and symmetrical. Absent : calf tenderness, cyanotic, pedal edema Additional comments: Erythema over the right anterior lower leg improving. Swelling is also improving. - Skin Skin exam: Present: dry, erythema, intact - Patient Status Disposition: Home, Self-Care Condition: Good Functional capacity at discharge: independent ambulation Overall status at discharge: patient is progressing back to baseline - Discharge Instructions Instructions: Atrial Fibrillation (DC), Acute Kidney Injury (DC), Cellulitis ( DC) Follow Up With: Matt Martinez MD [Primary Care Provider] - (in 1-2 weeks) - Diet and Activity Activity: increase activity as tolerated Diet: diabetic diet, low fat, low cholesterol, low salt diet
== END 2018-03-21 14:09 | disposition home or self-care (01) | DRG 603 ==
LOC: 2ANU 23:45 → EMEROO 23:45 → 2ANU 03-19 02:55 → SUATTDRO 03-19 15:10
PROVIDERS: ADMIT Internal Medicine; ATTEND Internal Medicine

== ENCOUNTER 2021-02-16 10:26 | Observation (INO) ==
[2021-02-16 11:10] LABS: Basophils % 0.2 %; Eosinophils % 0.8 %; Immature Granulocytes % 0.4 % (0-4); Red Cell Distribution Width 15.6 % (11.5-14.5)
[2021-02-16 11:12] LABS: Hematocrit 38.6 % (37.5-50.1); Immature Platelets 7.1 % (1.1-6.1); Lymphocytes # 1.2 K/mcL (0.6-4.6); Lymphocytes % 24.2 %; Mean Corpuscular HGB Conc 31.1 g/dL (31.6-35.5); Mean Corpuscular Hemoglobin 26.1 pg (28.0-33.3); Mean Corpuscular Volume 83.9 fL (83.0-100.0); Mean Platelet Volume 11.7 fL (9.4-12.4); Monocytes # 0.8 K/mcL (0.0-1.3); Monocytes % 16.5 %; Platelet Count 55 K/mcL (140-400); Segmented Neutrophils % 57.9 %; White Blood Count 5.1 K/mcL (4.3-11.1)
[2021-02-16 11:28] LABS: BUN/Creatinine Ratio 18 (6-26); Blood Urea Nitrogen 19 mg/dL (8-23); Calcium 8.5 mg/dL (8.6-10.3); Carbon Dioxide 26 mEq/L (23-29); Chloride 99 mEq/L (98-107); Glucose 278 mg/dL (70-105); Osmolality,Calculated 288 (280-300); Potassium 3.9 mEq/L (3.5-5.1); Sodium 133 mEq/L (136-145); eGFR For African Americans > 60 (> 60); eGFR For Non-African Americans > 60 (> 60)
[2021-02-16] MEDS ORDERED: Nitroglycerin 0.4 MG TAB.SUBL SL PRN (11:37)
[2021-02-16] MEDS ORDERED: Aspirin 325 MG TABLET PO ONE (11:37)
[2021-02-16 11:49] LABS: Troponin I 0.03 ng/mL (< 0.04)
[2021-02-16 12:15] LABS: Bacteria,Urine Few per hpf (None-Few); Bilirubin,Urine Negative (Negative); Blood,Urine Small (Negative); Clarity,Urine Clear (Clear); Color,Urine Light-Yellow (Yellow); Glucose,Urine (UA) 100 mg/dL (Normal); Granular Casts,Urine Few per lpf (None Seen); Hyaline Casts,Urine Few per lpf (None Seen); Ketones,Urine Negative (Negative); Leukocyte Esterase,Urine Negative (Negative); Mucus,Urine Few per lpf (None-Few); Nitrite,Urine Negative (Negative); Protein,Urine Trace mg/dL (Neg-Trace); RBC,Urine 0-3 per hpf (0-3); Specific Gravity,Urine 1.016 (1.010-1.025); Urobilinogen,Urine Normal (Normal); WBC,Urine 0-3 per hpf (0-3)
[2021-02-16] MEDS ORDERED: D5% in Water 1,000 ML IVC PRN (13:29)
[2021-02-16] MEDS ORDERED: Naloxone 0.4 MG/ML INJ IVP PRN (13:29)
[2021-02-16] MEDS ORDERED: *HR* Dextrose 50 % in Water (Vial) 50 ML VIAL IVP PRN (13:29)
[2021-02-16] MEDS ORDERED: Ondansetron 4 MG/2 ML VIAL IVP PRN (13:29)
[2021-02-16] MEDS ORDERED: Acetaminophen 325 MG TABLET PO PRN (13:29)
[2021-02-16] MEDS ORDERED: Dextrose Gel 15 GM/37.5 ML TUBE PO PRN ×2 (13:29)
[2021-02-16] MEDS ORDERED: MethylPREDNISolone 40 MG/ML VIAL IVP ONE (13:31)
[2021-02-16] MEDS: Insulin LISPRO 300 UNITS/3 ML VIAL SUBQ SCH (16:17)
[2021-02-16 19:05] LABS: Adenovirus Not Detected (Not Detect); Bordetella Pertussis Not Detected (Not Detect); Chlamydophila pneumoniae Not Detected (Not Detect); Coronavirus 229E Not Detected (Not Detect); Coronavirus HKU1 Not Detected (Not Detect); Coronavirus NL63 Not Detected (Not Detect); Coronavirus OC43 Not Detected (Not Detect); Human Metapneumovirus Not Detected (Not Detect); Human Rhinovirus/Enterovirus Not Detected (Not Detect); Influenza A Subtype 2009 H1 Not Detected (Not Detect); Influenza B Not Detected (Not Detect); Mycoplasma pneumoniae Not Detected (Not Detect); Parainfluenza Virus 1 Not Detected (Not Detect); Parainfluenza Virus 2 Not Detected (Not Detect); Parainfluenza Virus 3 Not Detected (Not Detect); Parainfluenza Virus 4 Not Detected (Not Detect); Respiratory Syncytial Virus Not Detected (Not Detect); SARS-CoV-2 Not Detected (Not Detect)
[2021-02-16] MEDS ORDERED: Insulin DETEMIR 100 UNIT/ML X5UNITS SUBQ SCH (21:00)
[2021-02-16] MEDS: Apixaban 2.5 MG TABLET PO SCH (21:20)
[2021-02-17 02:32] LABS: Basophils % 0.2 %; Red Blood Count 4.24 M/mcL (4.19-5.50); Red Cell Distribution Width 15.6 % (11.5-14.5)
[2021-02-17 02:34] LABS: Eosinophils % 0.4 %; Hematocrit 35.9 % (37.5-50.1); Hemoglobin 11.1 g/dL (12.9-16.9); Immature Granulocytes % 0.4 % (0-4); Immature Platelets 9.3 % (1.1-6.1); Mean Corpuscular HGB Conc 30.9 g/dL (31.6-35.5); Mean Corpuscular Hemoglobin 26.2 pg (28.0-33.3); Mean Corpuscular Volume 84.7 fL (83.0-100.0); Mean Platelet Volume 11.2 fL (9.4-12.4); Monocytes # 0.5 K/mcL (0.0-1.3); Monocytes % 9.5 %; Neutrophils # 3.3 K/mcL (1.6-8.9); Segmented Neutrophils % 68.5 %; White Blood Count 4.8 K/mcL (4.3-11.1)
[2021-02-17 02:36] LABS: Platelet Count 49 K/mcL (140-400)
[2021-02-17 03:01] LABS: BUN/Creatinine Ratio 21 (6-26); Blood Urea Nitrogen 17 mg/dL (8-23); Calcium 8.5 mg/dL (8.6-10.3); Carbon Dioxide 27 mEq/L (23-29); Chloride 103 mEq/L (98-107); Chol/HDL Ratio 7.3 (0-4.9); Cholesterol 110 mg/dL (< 200); Glucose 236 mg/dL (70-105); HDL Cholesterol 15 mg/dL (40-59); LDL Cholesterol,Calculated 72 mg/dL (< 100); Magnesium 2.1 mg/dL (1.6-2.6); Osmolality,Calculated 293 (280-300); Potassium 4.1 mEq/L (3.5-5.1); Sodium 137 mEq/L (136-145); Triglycerides 114 mg/dL (< 150); Troponin I 0.03 ng/mL (< 0.04); eGFR For African Americans > 60 (> 60); eGFR For Non-African Americans > 60 (> 60)
[2021-02-17] MEDS: Apixaban 2.5 MG TABLET PO SCH (08:41)
[2021-02-17] MEDS: Insulin LISPRO 300 UNITS/3 ML VIAL SUBQ SCH ×2 (08:42→11:45)
[2021-02-17] MEDS ORDERED: Cyanocobalamin (B-12) 1,000 MCG TABLET PO SCH (09:00)
[2021-02-17] MEDS ORDERED: Cholecalciferol (D-3) 1,000 UNIT (25MCG) TABLET PO SCH (09:00)
[2021-02-17] MEDS ORDERED: [UNRECOGNIZED DRUG - OTHER] PO SCH (09:00)
[2021-02-17] MEDS ORDERED: Furosemide 40 MG TABLET PO SCH (09:00)
[2021-02-17] MEDS ORDERED: MethylPREDNISolone 40 MG/ML VIAL IVP ONE (09:14)
[2021-02-17 10:52] VITALS: BP 148/87
[2021-02-17] MEDS ORDERED: Furosemide 20 MG TABLET PO SCH (13:00)
== END 2021-02-17 12:38 | disposition home or self-care (01) ==
LOC: EMEROOARM 10:26 → 2ANU 10:26 → SUATTDRO 12:49 → 2ANU 13:35
PROVIDERS: ADMIT Internal Medicine; ATTEND Internal Medicine

== ENCOUNTER 2021-04-05 19:28 | Inpatient (IN) ==
[2021-04-05] MEDS ORDERED: *HR* HYDROmorphone (PF) 1 MG/ML SYRINGE IVP ONE ×3 (20:00→23:24)
[2021-04-05] MEDS ORDERED: Ondansetron 4 MG/2 ML VIAL IVP ONE ×2 (20:00→23:24)
[2021-04-05] MEDS ORDERED: 0.9 % Sodium Chloride 1,000 ML IVC ONE (20:00)
[2021-04-05] MEDS ORDERED: Isovue-370 500 ML BOTTLE IVP ONE (20:01)
[2021-04-05 20:42] LABS: Basophils % 0.2 %; Hematocrit 42.5 % (37.5-50.1); Hemoglobin 13.1 g/dL (12.9-16.9); Immature Granulocytes % 0.4 % (0-4); Lymphocytes # 0.6 K/mcL (0.6-4.6); Lymphocytes % 4.4 %; Mean Corpuscular HGB Conc 30.8 g/dL (31.6-35.5); Mean Corpuscular Hemoglobin 26.5 pg (28.0-33.3); Mean Platelet Volume 11.9 fL (9.4-12.4); Monocytes # 0.4 K/mcL (0.0-1.3); Monocytes % 2.7 %; Neutrophils # 12.3 K/mcL (1.6-8.9); Platelet Count 214 K/mcL (140-400); Red Blood Count 4.94 M/mcL (4.19-5.50); Red Cell Distribution Width 15.1 % (11.5-14.5); Segmented Neutrophils % 92.3 %; White Blood Count 13.3 K/mcL (4.3-11.1)
[2021-04-05 20:50] LABS: INR 1.2; Prothrombin Time 13.9 Seconds (9.4-12.1)
[2021-04-05 20:52] LABS: Activated Partial Thrombo Time 34.7 Seconds (26.0-36.0)
[2021-04-05 21:11] LABS: Alanine Aminotransferase 44 Units/L (7-52); Albumin 4.3 g/dL (3.5-5.7); Alkaline Phosphatase 155 Units/L (34-104); Aspartate Amino Transferase 87 Units/L (13-39); BUN/Creatinine Ratio 18 (6-26); Bilirubin,Total 1.3 mg/dL (0.3-1.0); Blood Urea Nitrogen 19 mg/dL (8-23); Calcium 9.5 mg/dL (8.6-10.3); Carbon Dioxide 27 mEq/L (23-29); Chloride 95 mEq/L (98-107); Globulin 4.2 g/dL (2.4-3.5); Glucose 287 mg/dL (70-105); Lipase 126 Units/L (11-82); Osmolality,Calculated 291 (280-300); Potassium 4.5 mEq/L (3.5-5.1); Sodium 134 mEq/L (136-145); Total Protein 8.5 g/dL (6.4-8.9); Troponin I < 0.03 ng/mL (< 0.04); eGFR For African Americans > 60 (> 60); eGFR For Non-African Americans > 60 (> 60)
[2021-04-05] MEDS ORDERED: Piperacillin/Tazobactam 3.375 GM in 0.9 % Sodium Chloride Mini Bag 100 ML IVPB ONE (22:23)
[2021-04-05] MEDS: 0.9 % Sodium Chloride 1,000 ML IVC SCH (22:35)
[2021-04-05 23:09] LABS: Bacteria,Urine Few per hpf (None-Few); Bilirubin,Urine Negative (Negative); Blood,Urine Negative (Negative); Clarity,Urine Clear (Clear); Color,Urine Yellow (Yellow); Glucose,Urine (UA) >=1000 mg/dL (Normal); Ketones,Urine 20 mg/dL (Negative); Leukocyte Esterase,Urine Negative (Negative); Mucus,Urine Few per lpf (None-Few); Nitrite,Urine Negative (Negative); Protein,Urine Trace mg/dL (Neg-Trace); Specific Gravity,Urine > 1.030 (1.010-1.025); Urobilinogen,Urine Normal (Normal); WBC,Urine 0-3 per hpf (0-3)
[2021-04-06] MEDS ORDERED: Naloxone 0.4 MG/ML INJ IVP PRN (00:45)
[2021-04-06] MEDS ORDERED: Ondansetron 4 MG/2 ML VIAL IVP PRN (00:45)
[2021-04-06] MEDS ORDERED: *HR* HYDROmorphone (PF) 1 MG/ML SYRINGE IVP PRN (00:46)
[2021-04-06] MEDS ORDERED: *HR* Dextrose 50 % in Water (Vial) 50 ML VIAL IVP PRN (00:50)
[2021-04-06] MEDS ORDERED: D5% in Water 1,000 ML IVC PRN (00:50)
[2021-04-06] MEDS ORDERED: Dextrose Gel 15 GM/37.5 ML TUBE PO PRN ×2 (00:50)
[2021-04-06 01:11] LABS: Basophils % 0.1 %; Hematocrit 41.7 % (37.5-50.1); Hemoglobin 13.2 g/dL (12.9-16.9); Immature Granulocytes % 0.5 % (0-4); Lymphocytes # 0.6 K/mcL (0.6-4.6); Lymphocytes % 3.9 %; Mean Corpuscular HGB Conc 31.7 g/dL (31.6-35.5); Mean Corpuscular Hemoglobin 27.4 pg (28.0-33.3); Mean Corpuscular Volume 86.5 fL (83.0-100.0); Mean Platelet Volume 11.3 fL (9.4-12.4); Monocytes # 0.9 K/mcL (0.0-1.3); Monocytes % 6.1 %; Neutrophils # 13.4 K/mcL (1.6-8.9); Platelet Count 204 K/mcL (140-400); Red Blood Count 4.82 M/mcL (4.19-5.50); Segmented Neutrophils % 89.4 %; White Blood Count 14.9 K/mcL (4.3-11.1)
[2021-04-06] MEDS: 0.9 % Sodium Chloride 1,000 ML IVC SCH ×4 (01:18→10:28)
[2021-04-06 01:32] LABS: BUN/Creatinine Ratio 20 (6-26); Blood Urea Nitrogen 20 mg/dL (8-23); Calcium 8.6 mg/dL (8.6-10.3); Carbon Dioxide 25 mEq/L (23-29); Chloride 99 mEq/L (98-107); Glucose 299 mg/dL (70-105); Magnesium 1.8 mg/dL (1.6-2.6); Osmolality,Calculated 294 (280-300); Potassium 4.3 mEq/L (3.5-5.1); Sodium 135 mEq/L (136-145); eGFR For African Americans > 60 (> 60); eGFR For Non-African Americans > 60 (> 60)
[2021-04-06 01:45] LABS: Thyroid Stimulating Hormone 4.233 mcIU/mL (0.340-5.600)
[2021-04-06] MEDS: Insulin LISPRO 300 UNITS/3 ML VIAL SUBQ SCH ×4 (02:46→18:23)
[2021-04-06] MEDS ORDERED: Chloraseptic Spray 177 ML BOTTLE MM PRN (06:15)
[2021-04-06] MEDS: Piperacillin/Tazobactam 3.375 GM in 0.9 % Sodium Chloride Mini Bag 100 ML IVPB SCH ×3 (08:11→23:46)
[2021-04-06 09:20] LABS: Alanine Aminotransferase 251 Units/L (7-52); Albumin/Globulin Ratio 1.1 (1.1-2.2); Alkaline Phosphatase 240 Units/L (34-104); Aspartate Amino Transferase 467 Units/L (13-39); Bilirubin,Direct 1.4 mg/dL (0.0-0.2); Bilirubin,Indirect 0.8 mg/dL (0.0-1.0); Bilirubin,Total 2.2 mg/dL (0.3-1.0); Globulin 3.6 g/dL (2.4-3.5); Total Protein 7.6 g/dL (6.4-8.9)
[2021-04-06] MEDS ORDERED: *HR* Metoprolol 5 MG/5 ML VIAL IVP PRN (14:48)
[2021-04-06] MEDS: Levothyroxine Sodium 100 MCG VIAL IVP SCH (15:42)
[2021-04-06] MEDS ORDERED: Insulin LISPRO 300 UNITS/3 ML VIAL SUBQ SCH (21:00)
[2021-04-07 02:56] LABS: Basophils % 0.2 %; Eosinophils # 0.1 K/mcL (0.0-0.6); Eosinophils % 0.4 %; Hematocrit 36.7 % (37.5-50.1); Immature Granulocytes % 0.4 % (0-4); Lymphocytes % 17.5 %; Mean Corpuscular Hemoglobin 26.5 pg (28.0-33.3); Mean Corpuscular Volume 88.4 fL (83.0-100.0); Mean Platelet Volume 11.2 fL (9.4-12.4); Monocytes # 0.9 K/mcL (0.0-1.3); Monocytes % 7.5 %; Neutrophils # 8.4 K/mcL (1.6-8.9); Platelet Count 172 K/mcL (140-400); Red Blood Count 4.15 M/mcL (4.19-5.50); Red Cell Distribution Width 15.6 % (11.5-14.5); White Blood Count 11.4 K/mcL (4.3-11.1)
[2021-04-07 03:18] LABS: Alanine Aminotransferase 144 Units/L (7-52); Albumin 3.4 g/dL (3.5-5.7); Alkaline Phosphatase 151 Units/L (34-104); Aspartate Amino Transferase 113 Units/L (13-39); BUN/Creatinine Ratio 25 (6-26); Bilirubin,Total 0.8 mg/dL (0.3-1.0); Blood Urea Nitrogen 25 mg/dL (8-23); Calcium 8.2 mg/dL (8.6-10.3); Carbon Dioxide 28 mEq/L (23-29); Chloride 107 mEq/L (98-107); Globulin 3.3 g/dL (2.4-3.5); Glucose 173 mg/dL (70-105); Osmolality,Calculated 301 (280-300); Potassium 3.7 mEq/L (3.5-5.1); Sodium 141 mEq/L (136-145); Total Protein 6.7 g/dL (6.4-8.9); eGFR For African Americans > 60 (> 60); eGFR For Non-African Americans > 60 (> 60)
[2021-04-07] MEDS: Insulin LISPRO 300 UNITS/3 ML VIAL SUBQ SCH ×4 (04:11→20:36)
[2021-04-07] MEDS ORDERED: Ondansetron 4 MG/2 ML VIAL IVP PRN ×2 (06:56→15:33)
[2021-04-07] MEDS ORDERED: Lidocaine -MPF 2% 2 ML VIAL ONE (07:29)
[2021-04-07] MEDS ORDERED: *HR* Rocuronium Bromide 50 MG/5 ML VIAL ONE (07:29)
[2021-04-07] MEDS ORDERED: *HR* FentaNYL (PF) 100 MCG/2 ML VIAL ONE (07:29)
[2021-04-07] MEDS ORDERED: *HR* Succinylcholine 200 MG/10 ML VIAL IVP ONE (07:29)
[2021-04-07] MEDS ORDERED: Lidocaine HCL 4 ML Topical Solution (Laryng-O-Jet Kit Sterile Pak) TP ONE (07:29)
[2021-04-07] MEDS ORDERED: Ondansetron 4 MG/2 ML VIAL ONE (07:29)
[2021-04-07] MEDS ORDERED: *HR* Midazolam HCl 2 MG/2 ML VIAL ONE (07:29)
[2021-04-07] MEDS ORDERED: *HR* Propofol 200 MG/20 ML VIAL IVP ONE (07:29)
[2021-04-07] MEDS ORDERED: 0.9 % Sodium Chloride 1,000 ML IVC SCH (07:45)
[2021-04-07] MEDS ORDERED: Acetaminophen IV 1,000 MG/100 ML BAG IVPB ONE (08:39)
[2021-04-07] MEDS ORDERED: Famotidine 20 MG/2 ML VIAL ONE (08:40)
[2021-04-07] MEDS ORDERED: *HR* HYDROmorphone (PF) 1 MG/ML SYRINGE IVP PRN ×2 (09:16→15:33)
[2021-04-07] MEDS ORDERED: *HR* HYDROmorphone 2 MG TABLET PO PRN (09:16)
[2021-04-07] MEDS ORDERED: *HR* Labetalol 20 MG/4 ML SYRINGE IVP PRN (09:16)
[2021-04-07] MEDS ORDERED: *HR* OxyCODONE Immed Rel 5 MG TABLET PO PRN (09:16)
[2021-04-07] MEDS ORDERED: Pregabalin 75 MG CAPSULE PO ONE (09:16)
[2021-04-07] MEDS ORDERED: *HR* HYDROMORPHONE 2 MG/ML VIAL ONE (09:28)
[2021-04-07] MEDS: Piperacillin/Tazobactam 3.375 GM in 0.9 % Sodium Chloride Mini Bag 100 ML IVPB SCH (10:26)
[2021-04-07] MEDS: *HR* HYDROmorphone PF 0.5 MG/0.5 ML SYRINGE IVP PRN ×2 (10:31→10:40)
[2021-04-07] MEDS: Levothyroxine Sodium 100 MCG VIAL IVP SCH (13:41)
[2021-04-07] MEDS ORDERED: *HR* Dextrose 50 % in Water (Vial) 50 ML VIAL IVP PRN (15:33)
[2021-04-07] MEDS ORDERED: *HR* OxyCODONE/APAP 5/325 TABLET PO PRN (15:33)
[2021-04-07] MEDS ORDERED: Ketorolac 15 MG/ML VIAL IVP SCH (15:33)
[2021-04-07] MEDS ORDERED: D5% in Water 1,000 ML IVC PRN (15:33)
[2021-04-07] MEDS ORDERED: Naloxone 0.4 MG/ML INJ IVP PRN (15:33)
[2021-04-07] MEDS ORDERED: *HR* Metoprolol 5 MG/5 ML VIAL IVP PRN (15:33)
[2021-04-07] MEDS ORDERED: Dextrose Gel 15 GM/37.5 ML TUBE PO PRN ×2 (15:33)
[2021-04-07] MEDS: Ketorolac 15 MG/ML VIAL IVP SCH ×2 (15:52→23:42)
[2021-04-07] MEDS: Pantoprazole 40 MG VIAL IVP SCH (15:52)
[2021-04-07] MEDS: 0.9 % Sodium Chloride 1,000 ML IVC SCH (15:53)
[2021-04-07] MEDS: *HR* Heparin 5,000 UNIT/ML VIAL SQ SCH (17:06)
[2021-04-07] MEDS ORDERED: Insulin LISPRO 300 UNITS/3 ML VIAL SUBQ SCH (18:00)
[2021-04-08 01:16] LABS: Basophils % 0.1 %; Hematocrit 36.8 % (37.5-50.1); Hemoglobin 10.9 g/dL (12.9-16.9); Immature Granulocytes % 0.3 % (0-4); Lymphocytes # 1.4 K/mcL (0.6-4.6); Lymphocytes % 10.4 %; Mean Corpuscular HGB Conc 29.6 g/dL (31.6-35.5); Mean Corpuscular Hemoglobin 26.5 pg (28.0-33.3); Mean Corpuscular Volume 89.3 fL (83.0-100.0); Mean Platelet Volume 11.4 fL (9.4-12.4); Monocytes % 7.1 %; Neutrophils # 10.9 K/mcL (1.6-8.9); Platelet Count 177 K/mcL (140-400); Red Blood Count 4.12 M/mcL (4.19-5.50); Red Cell Distribution Width 15.6 % (11.5-14.5); Segmented Neutrophils % 82.1 %; White Blood Count 13.3 K/mcL (4.3-11.1)
[2021-04-08 01:36] LABS: Alanine Aminotransferase 98 Units/L (7-52); Albumin 3.2 g/dL (3.5-5.7); Alkaline Phosphatase 124 Units/L (34-104); Aspartate Amino Transferase 54 Units/L (13-39); BUN/Creatinine Ratio 25 (6-26); Bilirubin,Total 0.7 mg/dL (0.3-1.0); Blood Urea Nitrogen 25 mg/dL (8-23); Calcium 7.9 mg/dL (8.6-10.3); Carbon Dioxide 26 mEq/L (23-29); Chloride 108 mEq/L (98-107); Globulin 3.2 g/dL (2.4-3.5); Glucose 224 mg/dL (70-105); Osmolality,Calculated 299 (280-300); Potassium 4.2 mEq/L (3.5-5.1); Sodium 139 mEq/L (136-145); Total Protein 6.4 g/dL (6.4-8.9); eGFR For African Americans > 60 (> 60); eGFR For Non-African Americans > 60 (> 60)
[2021-04-08] MEDS: Ketorolac 15 MG/ML VIAL IVP SCH ×3 (05:53→17:40)
[2021-04-08] MEDS: *HR* Heparin 5,000 UNIT/ML VIAL SQ SCH (05:53)
[2021-04-08] MEDS ORDERED: Levothyroxine Sodium 100 MCG VIAL IVP SCH ×2 (06:30→09:00)
[2021-04-08] MEDS: Insulin LISPRO 300 UNITS/3 ML VIAL SUBQ SCH ×4 (08:48→21:31)
[2021-04-08] MEDS: Pantoprazole 40 MG VIAL IVP SCH (08:48)
[2021-04-08] MEDS: Piperacillin/Tazobactam 3.375 GM in 0.9 % Sodium Chloride Mini Bag 100 ML IVPB SCH (17:40)
[2021-04-08] MEDS: 0.9 % Sodium Chloride 1,000 ML IVC SCH (18:23)
[2021-04-08] MEDS: Apixaban 2.5 MG TABLET PO SCH (21:30)
[2021-04-09] MEDS: Ketorolac 15 MG/ML VIAL IVP SCH ×2 (00:04→05:36)
[2021-04-09] MEDS: Piperacillin/Tazobactam 3.375 GM in 0.9 % Sodium Chloride Mini Bag 100 ML IVPB SCH ×2 (00:05→07:41)
[2021-04-09 03:26] VITALS: PULSE 60
[2021-04-09 06:13] LABS: Basophils % 0.3 %; Eosinophils # 0.1 K/mcL (0.0-0.6); Eosinophils % 1.6 %; Hematocrit 34.8 % (37.5-50.1); Hemoglobin 10.5 g/dL (12.9-16.9); Immature Granulocytes % 0.4 % (0-4); Lymphocytes # 1.9 K/mcL (0.6-4.6); Lymphocytes % 25.9 %; Mean Corpuscular HGB Conc 30.2 g/dL (31.6-35.5); Mean Corpuscular Hemoglobin 26.7 pg (28.0-33.3); Mean Corpuscular Volume 88.5 fL (83.0-100.0); Mean Platelet Volume 11.5 fL (9.4-12.4); Monocytes # 0.7 K/mcL (0.0-1.3); Monocytes % 8.9 %; Neutrophils # 4.6 K/mcL (1.6-8.9); Platelet Count 152 K/mcL (140-400); Red Blood Count 3.93 M/mcL (4.19-5.50); Red Cell Distribution Width 15.4 % (11.5-14.5); Segmented Neutrophils % 62.9 %; White Blood Count 7.3 K/mcL (4.3-11.1)
[2021-04-09] MEDS ORDERED: Levothyroxine Sodium 100 MCG VIAL IVP SCH (06:30)
[2021-04-09 06:38] LABS: Alanine Aminotransferase 63 Units/L (7-52); Albumin 3.1 g/dL (3.5-5.7); Albumin/Globulin Ratio 1.1 (1.1-2.2); Alkaline Phosphatase 106 Units/L (34-104); Aspartate Amino Transferase 31 Units/L (13-39); BUN/Creatinine Ratio 21 (6-26); Bilirubin,Total 0.7 mg/dL (0.3-1.0); Blood Urea Nitrogen 21 mg/dL (8-23); Calcium 7.9 mg/dL (8.6-10.3); Carbon Dioxide 29 mEq/L (23-29); Chloride 107 mEq/L (98-107); Globulin 2.9 g/dL (2.4-3.5); Glucose 180 mg/dL (70-105); Osmolality,Calculated 296 (280-300); Potassium 3.9 mEq/L (3.5-5.1); Sodium 139 mEq/L (136-145); eGFR For African Americans > 60 (> 60); eGFR For Non-African Americans > 60 (> 60)
[2021-04-09 06:41] VITALS: BP 115/67; TEMP 97.5; O2SAT 98
[2021-04-09] MEDS: Apixaban 2.5 MG TABLET PO SCH (07:42)
[2021-04-09] MEDS: Insulin LISPRO 300 UNITS/3 ML VIAL SUBQ SCH (07:52)
[2021-04-09] MEDS ORDERED: Cholecalciferol (D-3) 1,000 UNIT (25MCG) TABLET PO SCH (09:00)
[2021-04-09] MEDS ORDERED: Furosemide 40 MG TABLET PO SCH ×2 (09:00→12:00)
[2021-04-09] MEDS ORDERED: Cyanocobalamin (B-12) 1,000 MCG TABLET PO SCH (09:00)
== END 2021-04-09 12:45 | disposition home or self-care (01) | DRG 853 ==
LOC: EMEROOARM 19:28 → 3ANU 19:28 → SUATTDRO 23:32 → 3ANU 04-06 00:02
PROVIDERS: ADMIT Internal Medicine; ATTEND Family Medicine

== ENCOUNTER 2022-02-27 06:25 | Inpatient (IN) ==
[2022-02-27] MEDS ORDERED: CeFAZolin Syr 2,000MG/20 ML 2,000 MG/20 ML SYRINGE IVPB ONE (06:49)
[2022-02-27] MEDS ORDERED: Ringers Solution, Lactated 1,000 ML IVC SCH (07:00)
[2022-02-27] MEDS ORDERED: Aspirin 81 MG TAB.CHEW PO STA (07:14)
[2022-02-27] MEDS ORDERED: Acetaminophen IV 1,000 MG/100 ML BAG IVPB ONE (07:19)
[2022-02-27] MEDS ORDERED: *HR* FentaNYL (PF) 100 MCG/2 ML VIAL IVP PRN (07:19)
[2022-02-27] MEDS ORDERED: *HR* FentaNYL (PF) 100 MCG/2 ML VIAL ONE ×2 (07:43→10:11)
[2022-02-27] MEDS ORDERED: *HR* Propofol 200 MG/20 ML VIAL IVP ONE (07:43)
[2022-02-27] MEDS ORDERED: *HR* Remifentanil 1 MG VIAL IVP ONE (07:43)
[2022-02-27] MEDS ORDERED: *HR* Midazolam HCl 2 MG/2 ML VIAL ONE (07:43)
[2022-02-27] MEDS ORDERED: Ketamine HCL *QUVA* 50mg (1mL) SYRINGE ONE (07:43)
[2022-02-27] MEDS ORDERED: *HR* Rocuronium Bromide 50 MG/5 ML VIAL ONE (09:07)
[2022-02-27] MEDS ORDERED: *HR* Succinylcholine 200 MG/10 ML VIAL IVP ONE (09:07)
[2022-02-27] MEDS ORDERED: Lidocaine -MPF 2% 2 ML VIAL ONE (09:07)
[2022-02-27] MEDS ORDERED: Ondansetron 4 MG/2 ML VIAL ONE (09:07)
[2022-02-27] MEDS ORDERED: Bupivacaine/EPI 1:200k 0.25% 50 ML VIAL ONE ×2 (09:20→10:28)
[2022-02-27] MEDS ORDERED: *HR* HYDROcodone/Acet 5/325 mg TABLET PO PRN (12:59)
[2022-02-27] MEDS ORDERED: Ondansetron 4 MG/2 ML VIAL IVP PRN (12:59)
[2022-02-27] MEDS ORDERED: Ibuprofen 600 MG TABLET PO PRN (12:59)
[2022-02-27] MEDS ORDERED: Naloxone 0.4 MG/ML INJ IVP PRN (12:59)
[2022-02-27] MEDS: Ketorolac 30 MG/ML VIAL IVP PRN ×2 (16:03→22:03)
[2022-02-27] MEDS ORDERED: *HR* Dextrose 50 % in Water (Syg) 50 ML SYRINGE IVP PRN (17:04)
[2022-02-27] MEDS ORDERED: D5% in Water 1,000 ML IVC PRN (17:04)
[2022-02-27] MEDS ORDERED: Dextrose Gel 15 GM/37.5 ML TUBE PO PRN ×2 (17:04)
[2022-02-27] MEDS ORDERED: Insulin NPH/REG 70/30 100 UNIT/ML (x5UNIT) SUBQ SCH (18:00)
[2022-02-27] MEDS: Insulin LISPRO 300 UNITS/3 ML VIAL SUBQ SCH (18:04)
[2022-02-27] MEDS: *HR* Enoxaparin 30 MG/0.3 ML SYRINGE SQ SCH (18:05)
[2022-02-27 18:43] LABS: Basophils % 0.1 %; Hematocrit 38.1 % (37.5-50.1); Hemoglobin 11.8 g/dL (12.9-16.9); Immature Granulocytes % 0.3 % (0-4); Lymphocytes # 0.6 K/mcL (0.6-4.6); Lymphocytes % 6.4 %; Mean Corpuscular Hemoglobin 26.6 pg (28.0-33.3); Mean Corpuscular Volume 85.8 fL (83.0-100.0); Mean Platelet Volume 11.1 fL (9.4-12.4); Monocytes # 0.2 K/mcL (0.0-1.3); Monocytes % 1.5 %; Neutrophils # 9.2 K/mcL (1.6-8.9); Platelet Count 195 K/mcL (140-400); Red Blood Count 4.44 M/mcL (4.19-5.50); Red Cell Distribution Width 14.4 % (11.5-14.5); Segmented Neutrophils % 91.7 %
[2022-02-27 19:00] LABS: Alanine Aminotransferase 25 Units/L (7-52); Albumin 3.7 g/dL (3.5-5.7); Albumin/Globulin Ratio 1.1 (1.1-2.2); Alkaline Phosphatase 95 Units/L (34-104); Aspartate Amino Transferase 31 Units/L (13-39); BUN/Creatinine Ratio 20 (6-26); Bilirubin,Total 0.7 mg/dL (0.3-1.0); Blood Urea Nitrogen 20 mg/dL (8-23); Calcium 8.8 mg/dL (8.6-10.3); Carbon Dioxide 25 mEq/L (23-29); Chloride 99 mEq/L (98-107); Globulin 3.4 g/dL (2.4-3.5); Glucose 363 mg/dL (70-105); Osmolality,Calculated 291 (280-300); Potassium 4.7 mEq/L (3.5-5.1); Sodium 132 mEq/L (136-145); Total Protein 7.1 g/dL (6.4-8.9); eGFR For African Americans > 60 (> 60); eGFR For Non-African Americans > 60 (> 60)
[2022-02-27] MEDS ORDERED: Insulin LISPRO 300 UNITS/3 ML VIAL SUBQ SCH (21:00)
[2022-02-28 03:53] LABS: Basophils % 0.1 %; Hematocrit 36.6 % (37.5-50.1); Hemoglobin 11.3 g/dL (12.9-16.9); Immature Granulocytes % 0.4 % (0-4); Lymphocytes # 1.3 K/mcL (0.6-4.6); Lymphocytes % 10.8 %; Mean Corpuscular HGB Conc 30.9 g/dL (31.6-35.5); Mean Corpuscular Hemoglobin 26.4 pg (28.0-33.3); Mean Corpuscular Volume 85.5 fL (83.0-100.0); Mean Platelet Volume 11.6 fL (9.4-12.4); Monocytes # 0.7 K/mcL (0.0-1.3); Monocytes % 6.2 %; Neutrophils # 9.5 K/mcL (1.6-8.9); Platelet Count 203 K/mcL (140-400); Red Blood Count 4.28 M/mcL (4.19-5.50); Red Cell Distribution Width 14.6 % (11.5-14.5); Segmented Neutrophils % 82.5 %; White Blood Count 11.5 K/mcL (4.3-11.1)
[2022-02-28 04:10] LABS: BUN/Creatinine Ratio 23 (6-26); Blood Urea Nitrogen 23 mg/dL (8-23); Calcium 8.7 mg/dL (8.6-10.3); Carbon Dioxide 27 mEq/L (23-29); Chloride 103 mEq/L (98-107); Glucose 158 mg/dL (70-105); Osmolality,Calculated 289 (280-300); Potassium 4.5 mEq/L (3.5-5.1); Sodium 136 mEq/L (136-145); eGFR For African Americans > 60 (> 60); eGFR For Non-African Americans > 60 (> 60)
[2022-02-28] MEDS: *HR* Enoxaparin 30 MG/0.3 ML SYRINGE SQ SCH (06:36)
[2022-02-28] MEDS: Insulin LISPRO 300 UNITS/3 ML VIAL SUBQ SCH ×3 (08:14→16:58)
[2022-02-28] MEDS ORDERED: Furosemide 40 MG TABLET PO SCH (09:00)
[2022-02-28] MEDS ORDERED: Cholecalciferol (D-3) 1,000 UNIT (25MCG) TABLET PO SCH (09:00)
[2022-02-28] MEDS ORDERED: Cyanocobalamin (B-12) 1,000 MCG TABLET PO SCH (09:00)
[2022-02-28] MEDS ORDERED: Pantoprazole 40 MG VIAL IVP SCH (09:00)
[2022-02-28] MEDS ORDERED: Insulin NPH/REG 70/30 100 UNIT/ML (x5UNIT) SUBQ SCH (09:00)
[2022-02-28] MEDS ORDERED: Gabapentin 300 MG CAPSULE PO ONE (10:37)
[2022-02-28 11:55] VITALS: BP 122/68; PULSE 90; TEMP 98.3; O2SAT 96
== END 2022-02-28 17:42 | disposition home health service (06) | DRG 354 ==
LOC: SUATTDRO → SAMDAY 06:25 → 2ANU 12:29 → SUATTDRO 14:28 → 2ANU 14:28
PROVIDERS: ADMIT Internal Medicine; ATTEND Internal Medicine